=== PATIENT | female | born 1955 | race African-American/Black ===

== ENCOUNTER → 2017-10-12 | Outpatient (CLI) | payer MEDICARE ==
--- NOTE | 2017-10-12 11:12 | Diagnostic Imaging Report ---
PROCEDURE:X-RAY LEFT SHOULDER, COMPLETE COMPARISON:None. INDICATIONS:ARTHRITIS, SHOULDER PAIN FINDINGS: No acute, displaced fracture or dislocation. The humeral head projects appropriately adjacent to the glenoid. Irregularity along the greater humeral tuberosity likely reflects rotator cuff tendinosis. Mild narrowing and osteophytosis of the glenohumeral joint, as well as the acromioclavicular joint. Partially visualized left hemithorax is well aerated. CONCLUSION: Mild acromioclavicular and glenohumeral degenerative joint disease with suspected rotator cuff tendinosis. MRI of the left shoulder without contrast may be of benefit for further evaluation if clinically warranted. Dictated by: Rubin Kamara M.D. on 10/12/2017 at 11:15 Electronically approved by: Rubin Kamara M.D. on 10/12/2017 at 11:15
== END ==
LOC: MAMMO 09:59
PROVIDERS: ATTEND Family Medicine
DX: Z12.31 Encounter for screening mammogram for malignant neoplasm of breast (principal); M25.512 Pain in left shoulder
CPT/HCPCS: 77067

== ENCOUNTER → 2017-10-14 | Outpatient (CLI) | payer MEDICARE ==
--- NOTE | 2017-10-14 12:11 | Diagnostic Imaging Report ---
EXAM: DXA BONE DENSITY INDICATIONS: Osteoporosis COMPARISON: None. FINDINGS: Proximal left femur total bone mineral density (BMD) (g/cm2):0.893 Femur T-score (standard deviation relative to young adult mean BMD): -0.9 Femur Z-score (standard deviation relative to age-matched control group):0.0 Proximal left femur neck bone mineral density (BMD) (g/cm2):0.768 Femur T-score (standard deviation relative to young adult mean BMD): -1.3 Femur Z-score (standard deviation relative to age-matched control group):-0.1 Lumbar bone mineral density (BMD) (g/cm2):1.006 Lumbar T-score (standard deviation relative to young adult mean BMD): -1.3 Lumbar Z-score (standard deviation relative to age-matched control group):0.4 Change since prior exam (%): Femur:Not applicable. Spine:Not applicable. Change since oldest prior exam (%): Femur:Not applicable. Spine:Not applicable. CONCLUSION: 1. Bone mineral density in the left femur is classified as osteopenia. Fracture risk is increased. 2. Bone mineral density in the spine is classified as osteopenia. Fracture risk is increased. World Health Organization Classification: *The Z-score is provided for informational purposes. The T-score is preferable for clinical decisions. When comparing exams, a change of >4% is considered statistically significant. SUGGESTED RECOMMENDATIONS: Normal \T\ Osteopenia:Consideration should be given to use of calcium supplementation, daily multiple vitamins and adequate exercise, as preventive measures against osteoporosis, if clinically indicated. Osteoporosis \T\ Severe Osteoporosis:In addition to the above, consideration should be given to medical therapy against osteoporosis, if clinically indicated. Kb Franco M.D. Dictated by: Kb Franco M.D. on 10/14/2017 at 12:15 Electronically approved by: Kb Franco M.D. on 10/14/2017 at 12:15
== END ==
LOC: DX 10:47
PROVIDERS: ATTEND Family Medicine
DX: M81.0 Age-related osteoporosis without current pathological fracture (principal)
CPT/HCPCS: 77080

== ENCOUNTER → 2018-11-24 | Day surgery (SDC) | payer MEDICARE ==
[~2018-11-24] MED LIST: AMLODIPINE BESY10 MG PO; ASPIR 8181 MG PO; CARBAMAZEPINE200 MG PO; CARVEDILOL3.125 MG PO; CYCLOBENZAPRINE10 MG PO; FENTANYL CITRATE/PF 100MCG/2 ML INJ ONE; GABAPENTIN300 MG PO; LISINOPRIL2.5 MG PO; MIDAZOLAM HCL 2 MG/2 ML VIAL ONE; MULTIVITAMINS1 EAC7 PO; POTASSIUM CHLO10 ME1 PO; PROPOFOL IV EMULSION 10 MG/ML 50 ML VIAL ONE; SIMVASTATIN20 MG PO; TYLENOL WITH C1 EACH PO
--- OUTSIDE RECORDS SUMMARY | 2018-11-24 09:26 | XMS REPORT | Continuity of Care Document ---
Author Author Dovetail Address Unknown Phone Unavailable Care Team Providers Care Clinical Data Management Director Name Role Phone [employer] Unavailable Unavailable Problems Problem Status Onset Date Classification Date Reported Comments Source Acute ischemia of large intestine, extent unspecified 05/14/2018 11/16/2018 [facility] BLEEDING BY RECTUM Active 04/25/2018 [facility] ACUTE COLITIS Active 04/25/2018 [facility] DIZZY/FEVER/OTHER Active 08/25/2012 [facility] Brain tumor Resolved Problem 08/27/2012 [facility] Hypertension Resolved Problem 08/27/2012 [facility] RSD - Reflex sympathetic dystrophy Resolved Problem 08/27/2012 [facility] Seizure Resolved Problem 08/27/2012 [facility] Essential hypertension 11/16/2018 [facility] Epilepsy, unspecified, not intractable, without status epilepticus 11/16/2018 [facility] Diverticulosis of large intestine without perforation or abscess without bleeding 11/16/2018 [facility] Hyperlipidemia, unspecified 11/16/2018 [facility] Anemia, unspecified 11/16/2018 [facility] Other hemorrhoids 11/16/2018 [facility] Personal history of benign neoplasm of the brain 11/16/2018 [facility]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/2018 [facility] Brain tumor Resolved Problem 11[facility]16[facility] - Reflex sympathetic dystrophy Resolved Problem 11/16/2018 [facility] NONINFECTIVE GASTROENTERITIS AND COLITIS Active [facility] Medications Medication Details Route Status Patient Instructions Ordering Provider Order Date Source Fosamax 10 mg, 1 tab, Route: PO, Drug form: TAB, [id number], Start date: 05/02/18 6:30:00 [employer], Duration: 30 day, Stop date: 05/31/18 6:30:00 CSTNotes: Non-Formulary Drug Reserved for use in Post-Acute retirement care settings ONLY Give 30 min before breakfast w/6oz water. Sit upright for 30 min after dose. "Do Not Crush" (Same as: Fosamax) No Longer Active 05/02/2018 [facility] Metronidazole 500 MG Oral Tablet 500 mg=1 tab, PO, ABXQ8H, # 30 tab, 0 Refill(s), Pharmacy: [facility] [id number] No Longer Active 04/29/2018 [facility] Metronidazole 500 MG Oral Tablet 500 mg=1 tab, PO, ABXQ8H, # 20 tab, 0 Refill(s), Pharmacy: [facility] [id number] No Longer Active 04/29/2018 [facility] Flagyl 500 mg, 1 tab, Route: PO, Drug form: TAB, ABXQ8H, Dosing Weight 60, kg, Start date: 04/29/18 13:00:00 [employer], Duration: 7 day, Stop date: 05/06/18 5:00:00 [employer], ABX Indication: Intra-abdominal InfectionNotes: (Same as: Flagyl) Take with food/ avoid alcohol Inactive 04/29/2018 [facility] Cipro 500 mg, 1 tab, Route: PO, Drug form: TAB, [id number], Dosing Weight 60, kg, Start date: 04/29/18 13:00:00 [employer], Duration: 7 day, Stop date: 05/06/18 1:00:00 [employer], ABX Indication: Intra-abdominal InfectionNotes: May interfere w/enteral feedings - Take 1 hr before or 2 hrs after antacids, dairy pdt & minerals. On empty stomach. Inactive 04/29/2018 [facility] Potassium Chloride 10 mEq, 100 mL, Route: IVPB, Drug form: INJ, Q1H, Dosing Weight 60, kg, Total Dose=40 meq, Start date: 04/27/18 6:00:00 [employer], Duration: 4 doses or times, Stop date: 04/27/18 9:00:00 [employer], Peripheral LineNotes: Infuse at a rate of 10 mEq/hr. (Same as: KCL) Inactive 04/27/2018 [facility] Simvastatin 20 mg, 1 tab, Route: PO, Drug form: TAB, Bedtime, Dosing Weight 60, kg, Start date: 04/26/18 21:00:00 [employer], Duration: 30 day, Stop date: 05/25/18 21:00:00 CSTNotes: (Same as: Zocor) No Longer Active 04/27/2018 [facility] Zofran 4 mg, 2 mL, Route: IVP, Drug form: INJ, Q8H, Dosing Weight 60, kg, PRN Nausea, Start date: 04/26/18 12:55:00 [employer], Duration: 30 day, Stop date: 05/26/18 12:54:00 CSTNotes: (Same as: Zofran) MEDICATION WASTE Product Size: 4 mg Product Wasted: ___ mg No Longer Active 04/26/2018 [facility] Golytely 4,000 ml, Route: PO, Drug Form: PDR/REC, Dosing Weight 60, kg, ONCE, Start date: 04/26/18 12:55:00 [employer], Stop date: 04/26/18 12:55:00 CSTNotes: (polyethylene glycol electrolyte solution 4 Liter bottle) (Same as: Golytely, Colyte) Inactive 04/26/2018 [facility] Dulcolax Laxative 20 mg, 4 tab, Route: PO, Drug form: ECTAB, ONCE, Dosing Weight 60, kg, Start date: 04/26/18 12:55:00 [employer], Stop date: 04/26/18 12:55:00 CSTNotes: (Same As: Dulcolax, Correctol) (Do Not Crush) "Do Not Crush" Inactive 04/26/2018 [facility] Citrate of Magnesia 300 ml, Route: PO, Drug Form: LIQ, Dosing Weight 60, kg, ONCE, Start date: 04/26/18 12:55:00 [employer], Stop date: 04/26/18 12:55:00 CSTNotes: (Same as: Citrate of Magnesia) Concentration: 1.745 gm / 30 mL Inactive 04/26/2018 [facility] calcium-vitamin D 315 mg-200 intl units oral tablet 1 tab, Route: PO, Drug Form: TAB, BID, Start date: 04/26/18 9:00:00 [employer], Duration: 30 day, Stop date: 05/25/18 17:00:00 CSTNotes: Non-Formulary Medication (Same As: Citracal Caplets Plus D) No Longer Active 04/26/2018 [facility] Prevacid 15 mg, Route: PO, Daily, Dosing Weight 60, kg, Start date: 04/26/18 9:00:00 [employer], Duration: 30 day, Stop date: 05/25/18 9:00:00 [employer] Inactive 04/26/2018 [facility] Hydrochlorothiazide 25 MG Oral Tablet 25 mg, 1 tab, Route: PO, Drug form: TAB, QAM, Dosing Weight 60, kg, Start date: 04/26/18 9:00:00 [employer], Duration: 30 day, Stop date: 05/25/18 9:00:00 CSTNotes: (Same as: Hydrodiuril) With food. No Longer Active 04/26/2018 [facility] gabapentin 300 MG Oral Capsule 300 mg, 1 cap, Route: PO, Drug form: CAP, BID, Dosing Weight 60, kg, Start date: 04/26/18 9:00:00 [employer], Duration: 30 day, Stop date: 05/25/18 21:00:00 CSTNotes: (Same as: Neurontin) No Longer Active 04/26/2018 [facility] Folic Acid 1 mg, 1 tab, Route: PO, Drug form: TAB, Daily, Dosing Weight 60, kg, Start date: 04/26/18 9:00:00 [employer], Duration: 30 day, Stop date: 05/25/18 9:00:00 CSTNotes: (Same as: Folvite) No Longer Active 04/26/2018 [facility] Doxazosin 1 mg, 0.5 tab, Route: PO, Drug form: TAB, Daily, Dosing Weight 60, kg, Start date: 04/26/18 9:00:00 [employer], Duration: 30 day, Stop date: 05/25/18 9:00:00 CSTNotes: (Same as: Cardura) No Longer Active 04/26/2018 [facility] Estrogens, Conjugated (FDC) 0.625 MG/ML Vaginal Cream [Premarin] 1 appl, Route: VAG, Daily, Drug form: CRM/A, Start date: 04/26/18 9:00:00 [employer], Duration: 30 day, Stop date: 05/25/18 9:00:00 [employer] Inactive 04/26/2018 [facility] Tegretol 200 mg, 1 tab, Route: PO, Drug form: TAB, BID, Dosing Weight 60, kg, Start date: 04/26/18 9:00:00 [employer], Duration: 30 day, Stop date: 05/25/18 17:00:00 CSTNotes: With food. (Same As: Tegretol) No Longer Active 04/26/2018 [facility] Aspirin 81 mg, 1 tab, Route: PO, Drug form: ECTAB, Daily, Dosing Weight 60, kg, Start date: 04/26/18 9:00:00 [employer], Duration: 30 day, Stop date: 05/25/18 9:00:00 CSTNotes: Do not crush or chew. (Same As: Ecotrin) No Longer Active 04/26/2018 [facility] carvedilol 6.25 mg, 1 tab, Route: PO, Drug form: TAB, BID, Dosing Weight 60, kg, Start date: 04/26/18 9:00:00 [employer], Duration: 30 day, Stop date: 05/25/18 21:00:00 CSTNotes: Give with food. (Same As: Coreg) No Longer Active 04/26/2018 [facility] Calcium Carbonate Route: PO, BID, Dosing Weight 60, kg, Start date: 04/26/18 9:00:00 [employer], Duration: 30 day, Stop date: 05/25/18 17:00:00 [employer] Inactive 04/26/2018 [facility] Amlodipine 10 mg, 1 tab, Route: PO, Drug form: TAB, Daily, Dosing Weight 60, kg, Start date: 04/26/18 9:00:00 [employer], Duration: 30 day, Stop date: 05/25/18 9:00:00 CSTNotes: (Same as: Norvasc) No Longer Active 04/26/2018 [facility] Klor-Con 10 mEq, 1 tab, Route: PO, Drug form: ERTAB, Daily, Dosing Weight 60, kg, Start date: 04/26/18 9:00:00 [employer], Duration: 30 day, Stop date: 05/25/18 9:00:00 CSTNotes: (Same as: K-Dur 10) "Do Not Crush" With food and full glass of water No Longer Active 04/26/2018 [facility] multivitamin 1 tab, Route: PO, Drug Form: TAB, Dosing Weight 60, kg, Daily, Start date: 04/26/18 9:00:00 [employer], Duration: 30 day, Stop date: 05/25/18 9:00:00 CSTNotes: (Same as:One Tab Daily, Tab-A-Soraida + Beta Carotene) Give with food. No Longer Active 04/26/2018 [facility] Methocarbamol 1,500 mg, 3 tab, Route: PO, Drug form: TAB, TID, Dosing Weight 60, kg, Start date: 04/26/18 9:00:00 [employer], Duration: 30 day, Stop date: 05/25/18 17:00:00 CSTNotes: (Same as:Robaxin) No Longer Active 04/26/2018 [facility] Alendronate 70 mg, Route: PO, Drug form: EFTAB, qWeek, Dosing Weight 60, kg, Start date: 04/26/18 8:00:00 [employer], Duration: 30 day, Stop date: 05/24/18 9:00:00 [employer] Inactive 04/26/2018 [facility] Protonix 40 mg, 1 tab, Route: PO, Drug form: ECTAB, Q24H, Start date: 04/26/18 8:00:00 [employer], Duration: 30 day, Stop date: 05/25/18 8:00:00 CSTNotes: Tablet should not be chewed or crushed. (Same as: Protonix) No Longer Active 04/26/2018 [facility] Lactulose 667 MG/ML Oral Solution 20 gm, 30 ml, Route: PO, Drug form: SYRP, Daily, Dosing Weight 60, kg, PRN Constipation, Start date: 04/26/18 7:26:00 [employer], Duration: 30 day, Stop date: 05/26/18 7:25:00 CSTNotes: (Same as:Chronulac) No Longer Active 04/26/2018 [facility] Ibuprofen 400 MG Oral Tablet 400 mg, 1 tab, Route: PO, Drug form: TAB, Q8H, Dosing Weight 60, kg, PRN Pain Score 1-3, Start date: 04/26/18 7:26:00 [employer], Duration: 30 day, Stop date: 05/26/18 7:25:00 CSTNotes: (Same as: Motrin) "Do Not Crush" Give with food. No Longer Active 04/26/2018 [facility] hydrocortisone acetate 25 MG Rectal Suppository [Anusol HC] 25 mg, 1 supp, Route: DE, BID, Drug form: SUPP, PRN Hemorrhoids, Start date: 04/26/18 7:26:00 [employer], Duration: 30 day, Stop date: 05/26/18 7:25:00 CSTNotes: (Same as: Anusol-HC, Hemorrhoidal HC) No Longer Active 04/26/2018 [facility] Cetirizine 10 mg, 1 tab, Route: PO, Drug form: TAB, QPM, Dosing Weight 60, kg, PRN as needed for allergy symptoms, Start date: 04/26/18 7:26:00 [employer], Duration: 30 day, Stop date: 05/26/18 7:25:00 CSTNotes: (Same As: Zyrtec) No Longer Active 04/26/2018 [facility] Acetaminophen 325 MG / Hydrocodone Bitartrate 5 MG Oral Tablet [[employer] 5/325] 1 tab, Route: PO, Drug Form: TAB, Dosing Weight 60, kg, Q8H, PRN Other -See Comment, Start date: 04/26/18 7:26:00 [employer], Duration: 30 day, Stop date: 05/26/18 7:25:00 CSTNotes: (Same as: [employer] 325/5) Do not exceed 4gm/day of acetaminophen. No Longer Active 04/26/2018 [facility] zolpidem 5 mg, 1 tab, Route: PO, Drug form: TAB, Bedtime, Dosing Weight 60, kg, PRN Sleep, Start date: 04/26/18 7:26:00 [employer], Duration: 30 day, Stop date: 05/26/18 7:25:00 CSTNotes: (Same As: Ambien) No Longer Active 04/26/2018 [facility] Flagyl 500 mg, 100 mL, Route: IVPB, Drug form: INJ, ABXQ8H, Dosing Weight 64.744, kg, Start date: 04/26/18 2:00:00 [employer], Duration: 14 day, Stop date: 05/09/18 18:00:00 [employer], ABX Indication: Intra-abdominal Infec tionNotes: (Same as: Flagyl) Avoid alcohol. No Longer Active 04/26/2018 [facility] Potassium Chloride 10 mEq, 100 mL, Route: IVPB, Drug form: INJ, Q1H, Dosing Weight 60, kg, Total Dose=20 meq, Start date: 04/26/18 0:00:00 [employer], Duration: 2 doses or times, Stop date: 04/26/18 1:00:00 [employer], Peripheral LineNotes: Infuse at a rate of 10 mEq/hr. (Same as: KCL) Inactive 04/26/2018 [facility] carvedilol 6.25 mg oral tablet 6.25 mg=1 tab, PO, BID, # 180 tab, 0 Refill(s) Active 04/26/2018 [facility] Rocephin + sterile water 10 mL 1 gm, Route: IV, [id number], Dosing Weight 64.744, kg, Start date: 04/25/18 20:00:00 [employer], Duration: 14 day, Stop date: 05/08/18 20:00:00 [employer], ABX Indication: Intra-abdominal InfectionNotes: (Same As: Rocephin). Use with 100 mL NS and infuse over 30 min MEDICATION WASTE Product Size: 1000 mg Product Wasted: ___ mg No Longer Active 04/26/2018 [facility] Dilaudid 1 mg, 0.5 mL, Route: IVP, Drug form: INJ, Q4H, Dosing Weight 64.744, kg, PRN Pain Score 7-10, Start date: 04/25/18 19:26:00 [employer], Duration: 30 day, Stop date: 05/25/18 19:25:00 CSTNotes: Same as Dilaudid No Longer Active 04/26/2018 [facility] pantoprazole 40 mg, Route: IVP, ONCE, Dosing Weight 64.744, kg, Patient is NPO, Priority: STAT, Start date: 04/25/18 19:12:00 [employer], Stop date: 04/25/18 19:12:00 [employer] Inactive 04/26/2018 [facility] Cipro 400 mg, 200 mL, Route: IVPB, Drug form: INJ, ONCE, Dosing Weight 64.744, kg, Priority: STAT, Start date: 04/25/18 18:18:00 [employer], Stop date: 04/25/18 18:18:00 [employer], ABX Indication: Intra-abdominal Infec tionNotes: Do not refrigerate Inactive 04/26/2018 [facility] Flagyl 500 mg, 100 mL, Route: IVPB, Drug form: INJ, ONCE, Dosing Weight 64.744, kg, Priority: STAT, Start date: 04/25/18 18:18:00 [employer], Stop date: 04/25/18 18:18:00 [employer], ABX Indication: Intra-abdominal Infec tionNotes: (Same as: Flagyl) Avoid alcohol. Inactive 04/26/2018 [facility] Omnipaque 300 100 btl, Route: IV, Dosing Weight 64.744, kg, ONCE, Start date: 04/25/18 17:41:00 [employer], Stop date: 04/25/18 17:41:00 [employer] Inactive 04/25/2018 [facility] magnesium oxide 400 mg, 1 tab, Route: PO, Drug form: TAB, ONCE, Dosing Weight 59.091, kg, Start date: 08/25/12 19:56:00, Stop date: 08/25/12 19:56:00 PO No Longer Active 08/26/2012 [facility] potassium chloride 20 mEq oral tablet, extended release 40 mEq, 2 tab, Route: PO, Drug form: ERTAB, ONCE, Dosing Weight 59.091, kg, Priority: STAT, Start date: 08/25/12 19:53:00, Stop date: 08/25/12 19:53:00 PO No Longer Active [place] 08/26/2012 [facility] Macrobid 100 mg oral capsule 100 mg, 1 cap, PO, BID, 20 cap, Substitution Allowed, CAP PO Active [place] 08/25/2012 [facility] folic acid 1 mg oral tablet 1 mg, 1 tab, PO, Daily, 30 tab, Substitution Allowed, TAB PO Active 08/25/2012 [facility] multivitamin 1 tab, PO, Daily, Substitution Allowed, Maintenance PO Active 08/25/2012 [facility] aspirin 81 mg, PO, Daily, Substitution Allowed PO Active 08/25/2012 [facility] calcium carbonate vitamin D3 600-400 MG 1 tab, PO, BID, Substitution Allowed PO Active 08/25/2012 [facility] Premarin Vaginal 0.625 mg/g cream with applicator 1 appl, VAG, Daily, 42 gm, Substitution Allowed VAG Active 08/25/2012 [facility] lactulose 15 mL, PO, Daily, PRN, as needed for constipation, Substitution Allowed, Maintenance PO Active 08/25/2012 [facility] methocarbamol 750 mg oral tablet 1,500 mg, 2 tab, PO, TID, 60 tab, Substitution Allowed, TAB PO Active 08/25/2012 [facility] zolpidem 5 mg oral tablet 5 mg, 1 tab, PO, Bedtime, PRN, as needed for sleep, Substitution Allowed PO Active 08/25/2012 [facility] alendronate 70 mg oral tablet, effervescent 70 mg, 1 tab, PO, qWeek, on empty stomach and avoid bending, Substitution Allowedon empty stomach and avoid bending PO Active 08/25/2012 [facility] gabapentin 300 mg oral capsule 300 mg, 1 cap, PO, BID, 90 cap, Substitution Allowed PO Active 08/25/2012 [facility] doxazosin 1 mg oral tablet 1 mg, 1 tab, PO, Daily, 30 tab, Substitution Allowed, TAB PO Active 08/25/2012 [facility] simvastatin 20 mg, 1 tab, PO, Bedtime, 30 tab, Substitution Allowed PO Active 08/25/2012 [facility] Tegretol 200 mg oral tablet 200 mg, 1 tab, PO, Daily, 120 tab, Substitution Allowed, TAB PO Active 08/25/2012 [facility] Klor-Con 20 mEq, PO, Daily, Substitution Allowed PO Active 08/25/2012 [facility] amLODipine 10 mg oral tablet 10 mg, 1 tab, PO, Daily, 90 tab, Substitution Allowed, TAB PO Active 08/25/2012 [facility] hydrochlorothiazide 25 mg oral tablet 25 mg, 1 tab, PO, QAM, 30 tab, Substitution Allowed PO Active 08/25/2012 [facility] Prevacid 15 mg, PO, Daily, Substitution Allowed PO Active 08/25/2012 [facility] ibuprofen 400 mg oral tablet 400 mg, 1 tab, PO, Q8H, PRN, 60 tab, Pain, Substitution Allowed PO Active 08/25/2012 [facility] Anusol-HC 25 mg rectal suppository 25 mg, 1 supp, DE, BID, PRN, 14 supp, hemorrhoids, Substitution Allowed, SUPP DE Active 08/25/2012 [facility] cetirizine 10 mg oral capsule 10 mg, 1 cap, PO, QPM, PRN, as needed for allergy symptoms, Substitution Allowed PO Active 08/25/2012 [facility] [employer] 5/325 oral tablet 1 tab, PO, Q8H, PRN, 30 tab, as needed for pain, Substitution Allowed, Maintenance PO Active 08/25/2012 [facility] Allergies, Adverse Reactions, Alerts Substance Category Reaction Severity Reaction type Status Date Reported Comments Source No Known Medication Allergies Assertion Drug allergy [facility] Immunizations No Data Provided for This Section Results Order Name Results Value Reference Range Date Interpretation Comments Source HEMATOLOGY Lymphocytes # 1.4 1.0 - 5.5 04/29/2018 [facility] HEMATOLOGY Neutrophils # 1.8 1.5 - 8.1 04/29/2018 [facility] HEMATOLOGY Basophils 1.0 0.0 - 1.0 04/29/2018 [facility] HEMATOLOGY Monocytes # 0.6 0.0 - 0.8 04/29/2018 [facility] HEMATOLOGY Monocytes 15.3 2.0 - 12.0 04/29/2018 [facility] HEMATOLOGY Lymphocytes 36.5 20.0 - 40.0 04/29/2018 [facility] HEMATOLOGY Segs 47.2 45.0 - 75.0 04/29/2018 [facility] HEMATOLOGY MCHC 33.9 32.0 - 36.0 04/29/2018 [facility] HEMATOLOGY RDW 12.7 11.5 - 14.5 04/29/2018 [facility] HEMATOLOGY Hgb 11.9 12.0 - 16.0 04/29/2018 [facility] HEMATOLOGY RBC 3.73 4.20 - 5.40 04/29/2018 [facility] HEMATOLOGY WBC 3.8 3.7 - 10.4 04/29/2018 [facility] HEMATOLOGY Platelet 354 133 - 450 04/29/2018 [facility] HEMATOLOGY MPV 6.4 7.4 - 10.4 04/29/2018 [facility] HEMATOLOGY MCV 94.6 80.0 - 98.0 04/29/2018 [facility] HEMATOLOGY MCH 32.0 27.0 - 31.0 04/29/2018 [facility] HEMATOLOGY Hct 35.3 36.0 - 48.0 04/29/2018 [facility] HEMATOLOGY Neutrophils # 1.3 1.5 - 8.1 04/29/2018 [facility] HEMATOLOGY Basophils 0.8 0.0 - 1.0 04/29/2018 [facility] HEMATOLOGY Lymphocytes # 1.7 1.0 - 5.5 04/29/2018 [facility] HEMATOLOGY Monocytes # 0.4 0.0 - 0.8 04/29/2018 [facility] HEMATOLOGY Lymphocytes 49.1 20.0 - 40.0 04/29/2018 [facility] HEMATOLOGY Segs 38.1 45.0 - 75.0 04/29/2018 [facility] HEMATOLOGY Monocytes 12.0 2.0 - 12.0 04/29/2018 [facility] HEMATOLOGY MCHC 34.3 32.0 - 36.0 04/29/2018 [facility] HEMATOLOGY RDW 13.1 11.5 - 14.5 04/29/2018 [facility] HEMATOLOGY MPV 6.6 7.4 - 10.4 04/29/2018 [facility] HEMATOLOGY Platelet 336 133 - 450 04/29/2018 [facility] HEMATOLOGY Hgb 11.1 12.0 - 16.0 04/29/2018 [facility] HEMATOLOGY MCV 94.0 80.0 - 98.0 04/29/2018 [facility] HEMATOLOGY Hct 32.5 36.0 - 48.0 04/29/2018 [facility] HEMATOLOGY MCH 32.2 27.0 - 31.0 04/29/2018 [facility] HEMATOLOGY WBC 3.4 3.7 - 10.4 04/29/2018 [facility] HEMATOLOGY RBC 3.46 4.20 - 5.40 04/29/2018 [facility] HEMATOLOGY MPV 6.5 7.4 - 10.4 04/29/2018 [facility] HEMATOLOGY Platelet 319 133 - 450 04/29/2018 [facility] HEMATOLOGY Hgb 11.1 12.0 - 16.0 04/29/2018 [facility] HEMATOLOGY RBC 3.41 4.20 - 5.40 04/29/2018 [facility] HEMATOLOGY WBC 4.0 3.7 - 10.4 04/29/2018 [facility] HEMATOLOGY Hct 32.5 36.0 - 48.0 04/29/2018 [facility] HEMATOLOGY MCH 32.5 27.0 - 31.0 04/29/2018 [facility] HEMATOLOGY MCV 95.3 80.0 - 98.0 04/29/2018 [facility] HEMATOLOGY RDW 12.7 11.5 - 14.5 04/29/2018 [facility] HEMATOLOGY MCHC 34.1 32.0 - 36.0 04/29/2018 [facility] HEMATOLOGY Lymphocytes 48.8 20.0 - 40.0 04/29/2018 [facility] HEMATOLOGY Segs 40.5 45.0 - 75.0 04/29/2018 [facility] HEMATOLOGY Basophils 0.7 0.0 - 1.0 04/29/2018 [facility] HEMATOLOGY Monocytes 10.0 2.0 - 12.0 04/29/2018 [facility] HEMATOLOGY Lymphocytes # 2.0 1.0 - 5.5 04/29/2018 [facility] HEMATOLOGY Neutrophils # 1.6 1.5 - 8.1 04/29/2018 [facility] HEMATOLOGY Monocytes # 0.4 0.0 - 0.8 04/29/2018 [facility] CHEM PANEL eGFR 79 04/28/2018 Result Comment: The eGFR is calculated using the CKD-EPI formula. In most young, healthy individuals the eGFR will be >90 mL/min/1.73m2. The eGFR declines with age. An eGFR of 60-89 may be normal in some populations, particularly the elderly, for whom the CKD-EPI formula has not been extensively validated. Use of the eGFR is not recommended in the following populations:

Individuals with unstable creatinine concentrations, including patients and those with serious co-morbid conditions.

Patients with extremes in muscle mass or diet.

The data above are obtained from the National Kidney Disease Education Program (NKDEP) which additionally recommends that when the eGFR is used in patients with extremes of body mass index for purposes of drug dosing, the eGFR should be multiplied by the estimated BMI. [facility] CHEM PANEL AGAP 9.6 10.0 - 20.0 04/28/2018 [facility] CHEM PANEL Calcium Lvl 8.9 8.5 - 10.5 04/28/2018 [facility] CHEM PANEL B/C Ratio 16 6 - 25 04/28/2018 [facility] CHEM PANEL Bili Total 0.2 0.2 - 1.3 04/28/2018 [facility] CHEM PANEL Globulin 3.1 2.7 - 4.2 04/28/2018 [facility] CHEM PANEL Total Protein 6.6 6.4 - 8.4 04/28/2018 [facility] CHEM PANEL A/G Ratio 1.1 0.7 - 1.6 04/28/2018 [facility] CHEM PANEL ALT 22 0 - 65 04/28/2018 [facility] CHEM PANEL AST 13 0 - 37 04/28/2018 [facility] CHEM PANEL Alk Phos 116 39 - 136 04/28/2018 [facility] CHEM PANEL Albumin Lvl 3.5 3.5 - 5.0 04/28/2018 [facility] CHEM PANEL Potassium Lvl 3.6 3.5 - 5.1 04/28/2018 [facility] CHEM PANEL Chloride Lvl 102 95 - 109 04/28/2018 [facility] CHEM PANEL CO2 31 24 - 32 04/28/2018 [facility] [facility] BUN 14 7 - 22 04/28/2018 [facility] CHEM PANEL Glucose Lvl 86 70 - 99 04/28/2018 [facility] CHEM PANEL Sodium Lvl 139 135 - 145 04/28/2018 [facility] CHEM PANEL Creatinine Lvl 0.90 0.50 - 1.40 04/28/2018 [facility] CHEM PANEL A/G Ratio 1.1 0.7 - 1.6 04/27/2018 [facility] CHEM PANEL Albumin Lvl 3.9 3.5 - 5.0 04/27/2018 [facility] CHEM PANEL Globulin 3.7 2.7 - 4.2 04/27/2018 [facility] CHEM PANEL Chloride Lvl 94 95 - 109 04/27/2018 [facility] CHEM PANEL CO2 32 24 - 32 04/27/2018 [facility] CHEM PANEL AGAP 11.9 10.0 - 20.0 04/27/2018 [facility] CHEM PANEL AST 12 0 - 37 04/27/2018 [facility] CHEM PANEL ALT 23 0 - 65 04/27/2018 [facility] CHEM PANEL Bili Total 0.3 0.2 - 1.3 04/27/2018 [facility] CHEM PANEL eGFR 109 04/27/2018 Result Comment: The eGFR is calculated using the CKD-EPI formula. In most young, healthy individuals the eGFR will be >90 mL/min/1.73m2. The eGFR declines with age. An eGFR of 60-89 may be normal in some populations, particularly the elderly, for whom the CKD-EPI formula has not been extensively validated. Use of the eGFR is not recommended in the following populations:

Individuals with unstable creatinine concentrations, including patients and those with serious co-morbid conditions.

Patients with extremes in muscle mass or diet.

The data above are obtained from the National Kidney Disease Education Program (NKDEP) which additionally recommends that when the eGFR is used in patients with extremes of body mass index for purposes of drug dosing, the eGFR should be multiplied by the estimated BMI. [facility] CHEM PANEL Calcium Lvl 9.0 8.5 - 10.5 04/27/2018 [facility] CHEM PANEL B/C Ratio 7 6 - 25 04/27/2018 [facility] CHEM PANEL Total Protein 7.6 6.4 - 8.4 04/27/2018 [facility] CHEM PANEL Alk Phos 139 39 - 136 04/27/2018 [facility] CHEM PANEL Sodium Lvl 135 135 - 145 04/27/2018 [facility] CHEM PANEL Creatinine Lvl 0.67 0.50 - 1.40 04/27/2018 [facility] CHEM PANEL BUN 5 7 - 22 04/27/2018 [facility] CHEM PANEL Glucose Lvl 102 70 - 99 04/27/2018 [facility] CHEM PANEL Potassium Lvl 2.9 3.5 - 5.1 04/27/2018 Result Comment: Critical Result(s) called to marlen at 04/27/2018 05:25 by . Read back OK. [facility] HEMATOLOGY PTT 33.7 22.9 - 35.8 04/27/2018 [facility] HEMATOLOGY INR 1.09 0.85 - 1.17 04/27/2018 [facility] HEMATOLOGY PT 13.9 12.0 - 14.7 04/27/2018 [facility] Culture: Stool No Gram Negative Enteric Gill Isolated Gram Positive Gill Only Isolated No Salmonella, Shigella, Or Campylobacter Isolated 04/26/2018 [facility] CHEM PANEL Procalcitonin Lvl <0.05 ng/mL 0.00 - 0.10 04/26/2018 [facility] HEMATOLOGY PTT 29.4 22.9 - 35.8 04/26/2018 [facility] HEMATOLOGY INR 1.04 0.85 - 1.17 04/26/2018 [facility] HEMATOLOGY PT 13.4 12.0 - 14.7 04/26/2018 [facility] HEMATOLOGY Sed Rate 20 0 - 20 04/26/2018 [facility] IMMUNOLOGY Prealbumin 23.4 18.0 - 45.0 04/26/2018 [facility] TUMOR MARKERS CA 19-9 10.6 0.0 - 35.0 04/26/2018 [facility] TUMOR MARKERS AFP 3.4 0.0 - 11.0 04/26/2018 [facility] TUMOR MARKERS CEA 3.0 0.0 - 3.0 04/26/2018 [facility] CHEM PANEL A/G Ratio 1.2 0.7 - 1.6 04/25/2018 [facility] CHEM PANEL Globulin 3.8 2.7 - 4.2 04/25/2018 [facility] CHEM PANEL B/C Ratio 7 6 - 25 04/25/2018 [facility] CHEM PANEL AGAP 13.4 10.0 - 20.0 04/25/2018 [facility] CHEM PANEL eGFR 78 04/25/2018 Result Comment: The eGFR is calculated using the CKD-EPI formula. In most young, healthy individuals the eGFR will be >90 mL/min/1.73m2. The eGFR declines with age. An eGFR of 60-89 may be normal in some populations, particularly the elderly, for whom the CKD-EPI formula has not been extensively validated. Use of the eGFR is not recommended in the following populations:

Individuals with unstable creatinine concentrations, including patients and those with serious co-morbid conditions.

Patients with extremes in muscle mass or diet.

The data above are obtained from the National Kidney Disease Education Program (NKDEP) which additionally recommends that when the eGFR is used in patients with extremes of body mass index for purposes of drug dosing, the eGFR should be multiplied by the estimated BMI. [facility] CHEM PANEL Total Protein 8.2 6.4 - 8.4 04/25/2018 [facility] CHEM PANEL CO2 32 24 - 32 04/25/2018 [facility] CHEM PANEL Calcium Lvl 9.6 8.5 - 10.5 04/25/2018 [facility] CHEM PANEL AST 17 0 - 37 04/25/2018 [facility] CHEM PANEL Alk Phos 151 39 - 136 04/25/2018 [facility] CHEM PANEL Albumin Lvl 4.4 3.5 - 5.0 04/25/2018 [facility] CHEM PANEL ALT 26 0 - 65 04/25/2018 [facility] CHEM PANEL Potassium Lvl 3.4 3.5 - 5.1 04/25/2018 [facility] CHEM PANEL Bili Total 0.3 0.2 - 1.3 04/25/2018 [facility] CHEM PANEL BUN 6 7 - 22 04/25/2018 [facility] CHEM PANEL Creatinine Lvl 0.91 0.50 - 1.40 04/25/2018 [facility] CHEM PANEL Sodium Lvl 130 135 - 145 04/25/2018 [facility] CHEM PANEL Chloride Lvl 88 95 - 109 04/25/2018 [facility] CHEM PANEL Glucose Lvl 96 70 - 99 04/25/2018 [facility] HEMATOLOGY INR 0.92 0.85 - 1.17 04/25/2018 [facility] HEMATOLOGY PT 12.2 12.0 - 14.7 04/25/2018 [facility] CHEMISTRY eGFR 95 08/25/2012 NA <sup>2</sup>Result Comment: The eGFR is calculated using the CKD-EPI formula. In most young, healthy individuals the eGFR will be >90 mL/min/1.73m2. The eGFR declines with age. An eGFR of 60-89 may be normal in some populations, particularly the elderly, for whom the CKD-EPI formula has not been extensively validated. Use of the eGFR is not recommended in the following populations:& lt;br/>
Individuals with unstable creatinine concentrations, including patients and those with serious co-morbid conditions.

Patients with extremes in muscle mass or diet.

The data above are obtained from the National Kidney Disease Education Program (NKDEP) which additionally recommends that when the eGFR is used in patients with extremes of body mass index for purposes of drug dosing, the eGFR should be multiplied by the estimated BMI. [facility] CHEMISTRY CO2 34 24 - 32 08/25/2012 HI [facility] CHEMISTRY AGAP 13.0 10.0 - 20.0 08/25/2012 Normal [facility] CHEMISTRY Calcium Lvl 9.1 8.5 - 10.5 08/25/2012 Normal [facility] CHEMISTRY Potassium Lvl 3.0 3.5 - 5.1 08/25/2012 CRIT <sup>1</sup>Result Comment: Critical Result(s) called to Bita Whitehead at08/25/2012 18:42:15 CDT _ by johnathan henry_. Read back OK. [facility] CHEMISTRY Glucose Lvl 99 70 - 99 08/25/2012 Normal <sup>3</sup>Interpretive Data: Adult reference range values reflect the clinical guidelines
of the [place] [employer]. [facility] CHEMISTRY Chloride Lvl 100 95 - 109 08/25/2012 Normal [facility] CHEMISTRY Sodium Lvl 144 135 - 145 08/25/2012 Normal [facility] CHEMISTRY Creatinine Lvl 0.8 0.5 - 1.4 08/25/2012 Normal [facility] CHEMISTRY BUN 14 7 - 22 08/25/2012 Normal [facility] HEMATOLOGY PT 12.1 12.0 - 14.7 08/25/2012 Normal [facility] HEMATOLOGY INR 0.87 0.85 - 1.17 08/25/2012 Normal <sup>4</sup>Interpretive Data: RECOMMENDED RANGES FOR PROTIME INR:
2.0-3.0 for most medical and surgical thromboembolic states.
2.5-3.5 for artificial heart valves and recurrent embolism.

INR SHOULD BE USED ONLY FOR PATIENTS ON STABLE ANTICOAGULANT THERAPY. [facility] HEMATOLOGY MPV 7.2 7.4 - 10.4 08/25/2012 LOW [facility] HEMATOLOGY Platelet 284 133 - 450 08/25/2012 Normal [facility] HEMATOLOGY RDW 12.3 11.5 - 14.5 08/25/2012 Normal [facility] HEMATOLOGY MCHC 33.5 32.0 - 36.0 08/25/2012 Normal [facility] HEMATOLOGY MCH 31.6 27.0 - 31.0 08/25/2012 HI [facility] HEMATOLOGY Hgb 11.0 12.0 - 16.0 08/25/2012 [facility] HEMATOLOGY Hct 32.9 36.0 - 48.0 08/25/2012 LOW [facility] HEMATOLOGY RBC 3.49 4.20 - 5.40 08/25/2012 [facility] HEMATOLOGY WBC 5.4 3.7 - 10.4 08/25/2012 Normal [facility] HEMATOLOGY MCV 94.3 81.0 - 99.0 08/25/2012 Normal [facility] HEMATOLOGY Monocytes 11.8 2.0 - 12.0 08/25/2012 Normal [facility] HEMATOLOGY Eosinophils 0.0 0.0 - 4.0 08/25/2012 Normal [facility] HEMATOLOGY Segs-Bands # 2.9 1.5 - 8.1 08/25/2012 Normal [facility] HEMATOLOGY Segs 52.7 45.0 - 75.0 08/25/2012 Normal [facility] HEMATOLOGY Basophils 0.6 0.0 - 1.0 08/25/2012 Normal [facility] HEMATOLOGY Lymphocytes 34.9 20.0 - 40.0 08/25/2012 Normal [facility] HEMATOLOGY Eosinophils # 0.0 0.0 - 0.5 08/25/2012 Normal [facility] HEMATOLOGY Basophils # 0.0 0.0 - 0.2 08/25/2012 Normal [facility] HEMATOLOGY Lymphocytes # 1.9 1.0 - 5.5 08/25/2012 Normal [facility] HEMATOLOGY Monocytes # 0.6 0.0 - 0.8 08/25/2012 Normal [facility] URINALYSIS UA Renal Epi 0-2 /LPF *ABN* (08/25/2012 17:50:00) 08/25/2012 ABN [facility] URINALYSIS UA Amorph Ayleen Few /HPF *ABN* (08/25/2012 17:50:00) None Seen 08/25/2012 ABN [facility] URINALYSIS UA Bacteria Occasional /HPF (08/25/2012 17:50:00) None Seen 08/25/2012 Normal [facility] URINALYSIS UA Mucus Few /LPF (08/25/2012 17:50:00) None Seen 08/25/2012 Normal [facility] URINALYSIS UA RBC 21-50 /HPF *ABN* (08/25/2012 17:50:00) 0 - 2 08/25/2012 ABN [facility] URINALYSIS UA Sq Epi Moderate /LPF *ABN* (08/25/2012 17:50:00) Few 08/25/2012 ABN [facility] URINALYSIS UA WBC 3-5 /HPF (08/25/2012 17:50:00) None Seen 08/25/2012 Normal [facility] URINALYSIS Micro? Performed (08/25/2012 17:50:00) 08/25/2012 Normal [facility] URINALYSIS UA Nitrite Negative (08/25/2012 17:50:00) Negative 08/25/2012 Normal [facility] URINALYSIS UA Urobilinogen 0.2 0.1 - 1.0 08/25/2012 Normal [facility] URINALYSIS UA Leuk Est Small *ABN* (08/25/2012 17:50:00) Negative 08/25/2012 ABN [facility] URINALYSIS UA Bili Negative *NA* (08/25/2012 17:50:00) Negative 08/25/2012 NA [facility] URINALYSIS UA Blood Moderate *ABN* (08/25/2012 17:50:00) Negative 08/25/2012 ABN [facility] URINALYSIS UA Ketones Negative *NA* (08/25/2012 17:50:00) Negative 08/25/2012 NA [facility] URINALYSIS UA Protein 30 mg/dL *ABN* (08/25/2012 17:50:00) Negative 08/25/2012 ABN [facility] URINALYSIS UA Glucose Negative (08/25/2012 17:50:00) Negative 08/25/2012 Normal [facility] URINALYSIS UA pH 6.0 5.0 - 8.0 08/25/2012 Normal [facility] URINALYSIS UA Turbidity Slight Cloudy (08/25/2012 17:50:00) Clear 08/25/2012 Normal [facility] URINALYSIS UA Spec Grav 1.010 <=1.030 08/25/2012 Normal [facility] URINALYSIS UA Color Yellow *NA* (08/25/2012 17:50:00) Yellow 08/25/2012 NA [facility] Pathology Reports No Data Provided for This Section Diagnostic Reports Report Value Date Source Spine cervical wo contrast CT EXAM: CT CERVICAL SPINE WITHOUT CONTRAST DATE: 10/14/2018 INDICATION: 63 years old Female patient with history of - M47.22 Other spondylosis with radiculopathy, cervical region. COMPARISON: None. TECHNIQUE: Volumetric CT acquisition of the cervical spine without contrast. Computer reformatted coronal and sagittal images are also provided. Axial images are available in both bone and soft tissue algorithm. FINDINGS: The craniocervical junction is intact. At C2-C3, no spinal canal or foraminal narrowing is present. At C3-C4, endplate spurring and disc bulge resulting in moderate spinal canal narrowing. Uncovertebral changes resulting in moderate left and mild right foraminal narrowing. At C4-C5, endplate spurring and disc bulge resulting in mild spinal canal narrowing. Uncovertebral changes resulting in mild right foraminal narrowing. Left foramen is patent. At C5-C6, endplate spurring and disc bulge resulting in mild spinal canal narrowing. Uncovertebral changes resulting in mild bilateral foraminal narrowing. At C6-C7, endplate spurring and disc bulge resulting in mild spinal canal narrowing. Uncovertebral changes resulting in mild bilateral foraminal narrowing. At C6-C7, no significant spinal canal or foraminal narrowing is present. Visualized upper lungs are clear. IMPRESSION: 1. Degenerative changes contributing to in multilevel mild to moderate spinal canal stenosis. Multilevel degenerative neural foraminal narrowing. MRI cervical spine is recommended for better evaluation of the spinal cord and spinal canal stenosis. 10/14/2018 [facility] Chest 1view DX Clinical Indication: - High blood pressure Comparison: 08/25/2012 Technique: X-ray chest frontal projection FINDINGS: There is no consolidation, pleural effusion or pneumothorax. The heart is normal in size. The mediastinum and christopher are unremarkable. The visualized bones and soft tissues are within normal limits. IMPRESSION: No chest radiographic evidence of acute cardiopulmonary disease. SL: [id number] 04/25/2018 [facility] Abdomen/Pelvis w IV contrast CT Study: Abdomen/Pelvis w IV contrast CT Clinical Indication: Diarrhea - r/o colitis Comparison: None TECHNIQUE: Multiple axial CT images of the abdomen and pelvis were acquired following the administration of intravenous contrast. Sagittal and coronal reformatted images were performed. CT Radiation Dose DLP 342 mGy-cm FINDINGS: The visualized lung bases are clear bilaterally. Punctate subcentimeter bilateral renal hypodense cysts are seen. Liver, gallbladder, pancreas, spleen, and adrenal glands are normal in appearance. No intrahepatic or extrahepatic biliary duct dilatation is seen. Patient is status post hysterectomy. Urinary bladder is well-distended. Visualized ovaries are unremarkable. Trace free pelvic fluid is seen. Scattered sigmoid diverticula are noted without inflammatory change to suggest acute diverticulitis. Contiguous circumferential wall thickening with mucosal enhancement of the transverse and descending colon is seen, most notably affecting the transverse colon with overlying pericolonic inflammatory fat stranding. Appendix is unremarkable. No intraperitoneal free air or pathologic adenopathy is noted. Mild arterial calcifications are present. Degenerative changes of the lumbar spine are present. IMPRESSION: 1. Findings compatible with colitis throughout the transverse and descending colon, most notably affecting the transverse colon. 2. Sigmoid diverticulosis without acute diverticulitis. SL: FRANCISCO 04/25/2018 [facility] Brain wo contrast CT CT SCAN OF THE BRAIN DATE: 08/25/2012 at 6:18 p.m. CLINICAL INFORMATION: Vertigo. TECHNIQUE: Routine axial images of the brain were obtained in the unenhanced mode. FINDINGS: There are postoperative changes of right frontal craniotomy with the flap replaced in anatomic position. An old left frontal trang hole craniotomy is also noted. Multiple surgical clips are noted within the right frontal region and in the suprasellar region creating spray artifact. 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 Low density encephalomalacia is noted with the left occipital pole. There are no acute hemorrhages or infarcts. The sarah/white interfaces are well defined. There are no mass lesions or extra-axial collections. IMPRESSION: 1. No acute intracranial abnormality. 2. Postoperative changes of right frontal craniotomy. 3. Right frontal porencephaly. 4. Left occipital pole encephalomalacia consistent remote insult. 08/25/2012 [facility] Chest 2 views EXAM: Chest 2 views INDICATION: Coughing COMPARISON: None TECHNIQUE: PA and lateral views of the chest. FINDINGS: There is no consolidation, pleural effusion or pneumothorax. The cardiomediastinal silhouette is normal in appearance. Dextro convex curvature of the lower thoracic spine is present. IMPRESSION: 1. Lungs are clear. 2. Dextroconvex scoliosis of the lower thoracic spine. 08/25/2012 [facility] Consultation Notes No Data Provided for This Section Discharge Summaries No Data Provided for This Section History and Physicals No Data Provided for This Section Vital Signs Vital Sign Value Date Comments Source Respitory Rate 18 04/29/2018 [facility] Systolic (mm Hg) 155 04/29/2018 [facility] Diastolic (mm Hg) 98 04/29/2018 [facility] Temperature Oral (F) 98.1 F 04/29/2018 [facility] Heart Rate 80 04/29/2018 [facility] Heart Rate 85 04/29/2018 [facility] Systolic (mm Hg) 142 04/29/2018 [facility] Diastolic (mm Hg) 89 04/29/2018 [facility] Respitory Rate 18 04/29/2018 [facility] Temperature Oral (F) 98.1 F 04/29/2018 [facility] Height 149.86 cm 04/29/2018 [facility] Temperature Oral (F) 98.0 F 04/29/2018 [facility] Heart Rate 73 04/29/2018 [facility] Respitory Rate 20 04/29/2018 [facility] Systolic (mm Hg) 146 04/29/2018 [facility] Diastolic (mm Hg) 82 04/29/2018 [facility] BMI Calculated 24.99 04/26/2018 [facility] Weight 60 04/26/2018 [facility] Height 154.94 cm 04/26/2018 [facility] Weight 64.744 04/25/2018 [facility] BMI Calculated 26.97 04/25/2018 [facility] Height 154.94 cm 04/25/2018 [facility] Height 149.86 cm 08/25/2012 [facility] Weight 59.091 08/25/2012 [facility] Encounters Location Location Details Encounter Type Encounter Number Reason For Visit Attending Provider ADM Date DC Date Status Source [facility] Emergency [id number] NOELLE OSEI METER 08/25/2012 08/25/2012 Discharged [facility] Inpatient [id number] Benji Howard Jr 04/25/2018 04/29/2018 [facility] [id number] Raman Salazarh 10/14/2018 10/15/2018 OP[facility] Pe[facility] Procedures Procedure Code Date Perfomer Comments Source ACL - Reconstruction of anterior cruciate ligament [id number] [facility] Hysterectomy [id number] [facility] [place] ACL - Reconstruction of anterior cruciate ligament [id number] [facility] Hysterectomy [id number] [facility] ACL - Reconstruction of anterior cruciate ligament [id number] [facility] Hysterectomy [id number] [facility] Assessment and Plan No Data Provided for This Section Plan of Care No Data Provided for This Section Social History Social History Date Source Social History TypeResponse Smoking Status Never smoker; Exposure to Tobacco Smoke None; Cigarette Smoking Last 365 Days No; Reg Smoking Cessation Counseling No entered on: 04/25/18 04/26/2018 [facility] [place] Social History TypeResponse Smoking Status Never smoker; Exposure to Tobacco Smoke None; Cigarette Smoking Last 365 Days No; Reg Smoking Cessation Counseling No entered on: 04/25/18 04/26/2018 [facility] Family History No Data Provided for This Section Advance Directives No Data Provided for This Section Functional Status No Data Provided for This Section
--- OUTSIDE RECORDS SUMMARY | 2018-11-24 09:26 | XMS REPORT | CCD ---
Author Author Auto Generated Organization [facility] Address Unknown Phone Unavailable Care Team Providers Care Cigar Machine Feeder Name Role Phone Cosmo Liu CP Allergies, Adverse Reactions, Alerts Substance Reaction Status NKDA Active Problem List Condition Effective Dates Status Brain tumor Resolved Hypertension Resolved RSD - Reflex sympathetic dystrophy Resolved Seizure Resolved Medications Medication Instructions Start Date End Date Status magnesium oxide 400 mg, 1 tab, Route: PO, Drug 08/25/2012 08/25/2012 Completed form: TAB, ONCE, Dosing Weight 59.091, kg, Start date: 08/25/12 19:56:00, Stop date: 08/25/12 19:56:00 Premarin Vaginal 1 appl, VAG, Daily, 42 gm, 08/25/2012 Ordered 0.625 mg/g cream Substitution Allowed with applicator lactulose 15 mL, PO, Daily, PRN, as needed 08/25/2012 Ordered for constipation, Substitution Allowed, Maintenance methocarbamol 750 mg 1,500 mg, 2 tab, PO, TID, 60 tab, 08/25/2012 Ordered oral tablet Substitution Allowed, TAB Macrobid 100 mg oral 100 mg, 1 cap, PO, BID, 20 cap, 08/25/2012 09/04/2012 Ordered capsule Substitution Allowed, CAP Anusol-HC 25 mg 25 mg, 1 supp, GA, BID, PRN, 14 08/25/2012 Ordered rectal suppository supp, hemorrhoids, Substitution Allowed, SUPP cetirizine 10 mg 10 mg, 1 cap, PO, QPM, PRN, as 08/25/2012 Ordered oral capsule needed for allergy symptoms, Substitution Allowed zolpidem 5 mg oral 5 mg, 1 tab, PO, Bedtime, PRN, as 08/25/2012 Ordered tablet needed for sleep, Substitution Allowed [place] 5/325 oral 1 tab, PO, Q8H, PRN, 30 tab, as 08/25/2012 Ordered tablet needed for pain, Substitution Allowed, Maintenance alendronate 70 mg 70 mg, 1 tab, PO, qWeek, on empty 08/25/2012 Ordered oral tablet, stomach and avoid bending, effervescent Substitution Allowed on empty stomach and avoid bending gabapentin 300 mg 300 mg, 1 cap, PO, BID, 90 cap, 08/25/2012 Ordered oral capsule Substitution Allowed doxazosin 1 mg oral 1 mg, 1 tab, PO, Daily, 30 tab, 08/25/2012 Ordered tablet Substitution Allowed, TAB simvastatin 20 mg, 1 tab, PO, Bedtime, 30 tab, 08/25/2012 Ordered Substitution Allowed Tegretol 200 mg oral 200 mg, 1 tab, PO, Daily, 120 tab, 08/25/2012 Ordered tablet Substitution Allowed, TAB potassium chloride 40 mEq, 2 tab, Route: PO, Drug 08/25/2012 08/25/2012 Completed 20 mEq oral tablet, form: ERTAB, ONCE, Dosing Weight extended release 59.091, kg, Priority: STAT, Start date: 08/25/12 19:53:00, Stop date: 08/25/12 19:53:00 Klor-Con 20 mEq, PO, Daily, Substitution 08/25/2012 Ordered Allowed amLODipine 10 mg 10 mg, 1 tab, PO, Daily, 90 tab, 08/25/2012 Ordered oral tablet Substitution Allowed, TAB hydrochlorothiazide 25 mg, 1 tab, PO, QAM, 30 tab, 08/25/2012 Ordered 25 mg oral tablet Substitution Allowed Prevacid 15 mg, PO, Daily, Substitution 08/25/2012 Ordered Allowed folic acid 1 mg oral 1 mg, 1 tab, PO, Daily, 30 tab, 08/25/2012 Ordered tablet Substitution Allowed, TAB multivitamin 1 tab, PO, Daily, Substitution 08/25/2012 Ordered Allowed, Maintenance aspirin 81 mg, PO, Daily, Substitution 08/25/2012 Ordered Allowed ibuprofen 400 mg 400 mg, 1 tab, PO, Q8H, PRN, 60 08/25/2012 Ordered oral tablet tab, Pain, Substitution Allowed calcium carbonate vitamin D3 600-400 MG 1 tab, PO, 08/25/2012 Ordered BID, Substitution Allowed Vital Signs Most recent to oldest [Reference Range]: 1 Height 149.86 cm (08/25/2012 10:36:00) Weight 59.091 kg (08/25/2012 10:36:00) Results URINALYSIS Most recent to oldest [Reference Range]: 1 UA Turbidity [Clear] Slight Cloudy (08/25/2012 17:50:00) UA Color [Yellow] Yellow *NA* (08/25/2012 17:50:00) UA pH [5.0-8.0] 6.0 (08/25/2012 17:50:00) UA Spec Grav [<=1.030] 1.010 (08/25/2012 17:50:00) UA Glucose [Negative] Negative (08/25/2012 17:50:00) UA Blood [Negative] Moderate *ABN* (08/25/2012 17:50:00) UA Ketones [Negative] Negative *NA* (08/25/2012 17:50:00) UA Protein [Negative mg/dL] 30 mg/dL *ABN* (08/25/2012 17:50:00) UA Urobilinogen [0.1-1.0 EU/dL] 0.2 EU/dL (08/25/2012 17:50:00) UA Bili [Negative] Negative *NA* (08/25/2012 17:50:00) UA Leuk Est [Negative] Small *ABN* (08/25/2012 17:50:00) UA Nitrite [Negative] Negative (08/25/2012 17:50:00) UA WBC [None Seen /HPF] 3-5 /HPF (08/25/2012 17:50:00) UA RBC [0-2 /HPF] 21-50 /HPF *ABN* (08/25/2012 17:50:00) UA Bacteria [None Seen /HPF] Occasional /HPF (08/25/2012 17:50:00) UA Sq Epi [Few /LPF] Moderate /LPF *ABN* (08/25/2012 17:50:00) UA Amorph Ayleen [None Seen /HPF] Few /HPF *ABN* (08/25/2012 17:50:00) UA Renal Epi 0-2 /LPF *ABN* (08/25/2012 17:50:00) UA Mucus [None Seen /LPF] Few /LPF (08/25/2012 17:50:00) Micro? Performed (08/25/2012 17:50:00) CHEMISTRY Most recent to oldest [Reference Range]: 1 Sodium Lvl [135-145 mEq/L] 144 mEq/L (08/25/2012 17:50:00) Potassium Lvl [3.5-5.1 mEq/L] 3.0 mEq/L 1 *CRIT* (08/25/2012 17:50:00) Chloride Lvl [95-109 mEq/L] 100 mEq/L (08/25/2012 17:50:00) CO2 [24-32 mEq/L] 34 mEq/L *HI* (08/25/2012 17:50:00) AGAP [10.0-20.0 mEq/L] 13.0 mEq/L (08/25/2012 17:50:00) Creatinine Lvl [0.5-1.4 mg/dL] 0.8 mg/dL (08/25/2012 17:50:00) eGFR 95 mL/min/1.73m2 2 *NA* (08/25/2012 17:50:00) BUN [7-22 mg/dL] 14 mg/dL (08/25/2012 17:50:00) Glucose Lvl [70-99 mg/dL] 99 mg/dL 3 (08/25/2012 17:50:00) Calcium Lvl [8.5-10.5 mg/dL] 9.1 mg/dL (08/25/2012 17:50:00) 1Result Comment: Critical Result(s) called to Bita Whitehead at08/25/2012 18:42:15 CDT _ by johnathan henry_. Read back OK. 2Result Comment: The eGFR is calculated using the [...] from the National Kid[employer] Disease Education Program ( NKDEP) which additionally recommends that when the eGFR is used in patients with extremes of body mass index for purposes of drug dosing, the eGFR should be mul tiplied by the estimated BMI. 3Interpretive Data: Adult reference range values reflect the clinical guidelines of the [place] [employer]. HEMATOLOGY Most recent to oldest [Reference Range]: 1 WBC [3.7-10.4 K/CMM] 5.4 K/CMM (08/25/2012 17:50:00) RBC [4.20-5.40 M/CMM] 3.49 M/CMM *LOW* (08/25/2012 17:50:00) Hgb [12.0-16.0 g/dL] 11.0 g/dL *LOW* (08/25/2012:50:00) Hct [36.0-48.0 %] 32.9 % *LOW* (08/25/2012:50:00) MCV [81.0-99.0 fL] 94.3 fL (08/25/2012:50:00) MCH [27.0-31.0 pg] 31.6 pg *HI* (08/25/2012:50:00) MCHC [32.0-36.0 g/dL] 33.5 g/dL (08/25/2012 17:50:00) RDW [11.5-14.5 %] 12.3 % (08/25/2012 17:50:00) Platelet [133-450 K/CMM] 284 K/CMM (08/25/2012 17:50:00) MPV [7.4-10.4 fL] 7.2 fL *LOW* (08/25/2012 17:50:00) Segs [45.0-75.0 %] 52.7 % (08/25/2012 17:50:00) Lymphocytes [20.0-40.0 %] 34.9 % (08/25/2012 17:50:00) Monocytes [2.0-12.0 %] 11.8 % (08/25/2012 17:50:00) Eosinophils [0.0-4.0 %] 0.0 % (08/25/2012 17:50:00) Basophils [0.0-1.0 %] 0.6 % (08/25/2012 17:50:00) Segs-Bands # [1.5-8.1 K/CMM] 2.9 K/CMM (08/25/2012 17:50:00) Lymphocytes # [1.0-5.5 K/CMM] 1.9 K/CMM (08/25/2012 17:50:00) Monocytes # [0.0-0.8 K/CMM] 0.6 K/CMM (08/25/2012 17:50:00) Eosinophils # [0.0-0.5 K/CMM] 0.0 K/CMM (08/25/2012 17:50:00) Basophils # [0.0-0.2 K/CMM] 0.0 K/CMM (08/25/2012 17:50:00) PT [12.0-14.7 seconds] 12.1 seconds (08/25/2012 17:50:00) INR [0.85-1.17] 0.87 4 (08/25/2012 17:50:00) 4Interpretive Data: RECOMMENDED RANGES FOR PROTIME INR: 2.0-3.0 for most medical and surgical thromboembolic states. 2.5-3.5 for artificial heart valves and recurrent embolism. INR SHOULD BE USED ONLY FOR PATIENTS ON STABLE ANTICOAGULANT THERAPY. Procedures Procedures Date Related Diagnosis ACL - Reconstruction of anterior cruciate ligament Hysterectomy
--- OUTSIDE RECORDS SUMMARY | 2018-11-24 09:26 | XMS REPORT | Summary of Care ---
Author Author [facility] Organization [facility] Address Unknown Phone Unavailable Encounter HQ [place](TIANNA) [id number] Date(s): 04/25/18 - 04/29/18 [facility] [address] [place] [address]- [phone] Encounter Diagnosis Acute (reversible) ischemia of large intestine, extent unspecified (Final) - 05/13/18 Essential (primary) hypertension (Final) - Epilepsy, unspecified, not intractable, without status epilepticus (Final) - Diverticulosis of large intestine without perforation or abscess without bleedin g (Final) - Hyperlipidemia, unspecified (Final) - Anemia, unspecified (Final) - Other hemorrhoids (Final) - Personal history of benign neoplasm of the brain (Final) - halfway (current) use of aspirin (Final) - Discharge Disposition: Home or Self Care Attending Physician: Benji Beck MD Admitting Physician: Benji Beck MD Vital Signs 1 2 3 Most recent to oldest [Reference Range]: 149.86 cm (04/29/18 6:26 AM) 154.94 cm (04/25/18 9:52 PM) 154.94 cm (04/25/18 11:55 AM) Height 60.909 kg (04/29/18 6:26 AM) Current Weight 98.1 DegF (04/29/18 11:39 AM) 98.1 DegF (04/29/18 7:11 AM) 98.0 DegF (04/29/18 4:37 AM) Temperature Oral [96.4-99.1 DegF] 155/98 mmHg *HI* (04/29/18 11:39 AM) 142/89 mmHg *HI* (04/29/18 7:11 AM) 146/82 mmHg *HI* (04/29/18 4:37 AM) Blood Pressure [90-140/60-90 mmHg] 18 BRMIN (04/29/18 11:39 AM) 18 BRMIN (04/29/18 7:11 AM) 20 BRMIN (04/29/18 4:37 AM) Respiratory Rate [14-20 BRMIN] 80 bpm (04/29/18 11:39 AM) 85 bpm (04/29/18 7:11 AM) 73 bpm (04/29/18 4:37 AM) Peripheral Pulse Rate [60-100 bpm] 60 kg (04/25/18 9:52 PM) 64.744 kg (04/25/18 11:55 AM) Weight 24.99 m2 (04/25/18 9:52 PM) 26.97 m2 (04/25/18 11:55 AM) Body Mass Index Problem List Condition Effective Dates Status Health Status Informant Brain Resolved tumor(Confirmed) Hypertension(Confirm Resolved ed) RSD - Reflex Resolved sympathetic dystrophy(Confirmed) Seizure(Confirmed) Resolved Allergies, Adverse Reactions, Alerts No Known Medication Allergies Medications alendronate 70 mg, Route: PO, Drug form: EFTAB, qWeek, Dosing Weight 60, kg, Start date: 12/05 8:00:00 INBOUND SALES REPRESENTATIVE, Duration: 30 day, Stop date: 05/24/18 9:00:00 INBOUND SALES REPRESENTATIVE Start Date: 04/26/18 Stop Date: 04/26/18 Status: Deleted amLODIPine 10 mg, 1 tab, Route: PO, Drug form: TAB, Daily, Dosing Weight 60, kg, Start date : 04/26/18 9:00:00 INBOUND SALES REPRESENTATIVE, Duration: 30 day, Stop date: 05/25/18 9:00:00 INBOUND SALES REPRESENTATIVE Notes: (Same as: Norvasc) Start Date: 04/26/18 Stop Date: 04/29/18 Status: Discontinued Anusol-HC 25 mg rectal suppository 25 mg, 1 supp, Route: CO, BID, Drug form: SUPP, PRN Hemorrhoids, Start date: 12/05 7:26:00 INBOUND SALES REPRESENTATIVE, Duration: 30 day, Stop date: 05/26/18 7:25:00 INBOUND SALES REPRESENTATIVE Notes: (Same as: Anusol-HC, Hemorrhoidal HC) Start Date: 04/26/18 Stop Date: 04/29/18 Status: Discontinued aspirin 81 mg, 1 tab, Route: PO, Drug form: ECTAB, Daily, Dosing Weight 60, kg, Start da te: 04/26/18 9:00:00 INBOUND SALES REPRESENTATIVE, Duration: 30 day, Stop date: 05/25/18 9:00:00 INBOUND SALES REPRESENTATIVE Notes: Do not crush or chew.(Same As: Ecotrin) Start Date: 04/26/18 Stop Date: 04/29/18 Status: Discontinued calcium carbonate Route: PO, BID, Dosing Weight 60, kg, Start date: 04/26/18 9:00:00 INBOUND SALES REPRESENTATIVE, Duration : 30 day, Stop date: 05/25/18 17:00:00 INBOUND SALES REPRESENTATIVE Start Date: 04/26/18 Stop Date: 04/26/18 Status: Deleted calcium-vitamin D 315 mg-200 intl units oral tablet 1 tab, Route: PO, Drug Form: TAB, BID, Start date: 04/26/18 9:00:00 INBOUND SALES REPRESENTATIVE, Duratio n: 30 day, Stop date: 05/25/18 17:00:00 INBOUND SALES REPRESENTATIVE Notes: Non-Formulary Medication(Same As: Citracal Caplets Plus D) Start Date: 04/26/18 Stop Date: 04/29/18 Status: Discontinued carvedilol 6.25 mg, 1 tab, Route: PO, Drug form: TAB, BID, Dosing Weight 60, kg, Start date : 04/26/18 9:00:00 INBOUND SALES REPRESENTATIVE, Duration: 30 day, Stop date: 05/25/18 21:00:00 INBOUND SALES REPRESENTATIVE Notes: Give with food. (Same As: Coreg) Start Date: 04/26/18 Stop Date: 04/29/18 Status: Discontinued carvedilol 6.25 mg oral tablet 6.25 mg=1 tab, PO, BID, # 180 tab, 0 Refill(s) Start Date: 04/25/18 Status: Ordered cetirizine 10 mg, 1 tab, Route: PO, Drug form: TAB, QPM, Dosing Weight 60, kg, PRN as neede d for allergy symptoms, Start date: 04/26/18 7:26:00 INBOUND SALES REPRESENTATIVE, Duration: 30 day, Stop date: 05/26/18 7:25:00 INBOUND SALES REPRESENTATIVE Notes: (Same As: Zyrtec) Start Date: 04/26/18 Stop Date: 04/29/18 Status: Discontinued Cipro 400 mg, 200 mL, Route: IVPB, Drug form: INJ, ONCE, Dosing Weight 64.744, kg, Tamy ority: STAT, Start date: 04/25/18 18:18:00 INBOUND SALES REPRESENTATIVE, Stop date: 04/25/18 18:18:00 INBOUND SALES REPRESENTATIVE , ABX Indication: Intra-abdominal Infection Notes: Do not refrigerate Start Date: 04/25/18 Stop Date: 04/25/18 Status: Completed Cipro 500 mg, 1 tab, Route: PO, Drug form: TAB, [id number], Dosing Weight 60, kg, Start d ate: 04/29/18 13:00:00 INBOUND SALES REPRESENTATIVE, Duration: 7 day, Stop date: 05/06/18 1:00:00 INBOUND SALES REPRESENTATIVE, AB X Indication: Intra-abdominal Infection Notes: May interfere w/enteral feedings - Take 1 hr before or 2 hrs after anta cids, dairy pdt & minerals. On empty stomach. Start Date: 04/29/18 Stop Date: 04/29/18 Status: Discontinued Citrate of Magnesia 300 ml, Route: PO, Drug Form: LIQ, Dosing Weight 60, kg, ONCE, Start date: 04/26 12:55:00 INBOUND SALES REPRESENTATIVE, Stop date: 04/26/18 12:55:00 INBOUND SALES REPRESENTATIVE Notes: (Same as: Citrate of Magnesia)Concentration: 1.745 gm / 30 mL Start Date: 04/26/18 Stop Date: 04/26/18 Status: Completed Dilaudid 1 mg, 0.5 mL, Route: IVP, Drug form: INJ, Q4H, Dosing Weight 64.744, kg, PRN Vonnie n Score 7-10, Start date: 04/25/18 19:26:00 INBOUND SALES REPRESENTATIVE, Duration: 30 day, Stop date: 19:25:00 INBOUND SALES REPRESENTATIVE Notes: Same as Dilaudid Start Date: 04/25/18 Stop Date: 04/29/18 Status: Discontinued doxazosin 1 mg, 0.5 tab, Route: PO, Drug form: TAB, Daily, Dosing Weight 60, kg, Start jeremiah e: 04/26/18 9:00:00 INBOUND SALES REPRESENTATIVE, Duration: 30 day, Stop date: 05/25/18 9:00:00 INBOUND SALES REPRESENTATIVE Notes: (Same as: Alec) Start Date: 04/26/18 Stop Date: 04/29/18 Status: Discontinued Dulcolax Laxative 20 mg, 4 tab, Route: PO, Drug form: ECTAB, ONCE, Dosing Weight 60, kg, Start jeremiah e: 04/26/18 12:55:00 INBOUND SALES REPRESENTATIVE, Stop date: 04/26/18 12:55:00 INBOUND SALES REPRESENTATIVE Notes: (Same As: Dulcolax, Correctol) (Do Not Crush) "Do Not Crush" Start Date: 04/26/18 Stop Date: 04/26/18 Status: Completed Flagyl 500 mg, 100 mL, Route: IVPB, Drug form: INJ, ABXQ8H, Dosing Weight 64.744, kg, S tart date: 04/26/18 2:00:00 INBOUND SALES REPRESENTATIVE, Duration: 14 day, Stop date: 05/09/18 18:00:00 INBOUND SALES REPRESENTATIVE, ABX Indication: Intra-abdominal Infection Notes: (Same as: Flagyl) Avoid alcohol. Start Date: 04/26/18 Stop Date: 04/29/18 Status: Discontinued Flagyl 500 mg, 1 tab, Route: PO, Drug form: TAB, ABXQ8H, Dosing Weight 60, kg, Start da te: 04/29/18 13:00:00 INBOUND SALES REPRESENTATIVE, Duration: 7 day, Stop date: 05/06/18 5:00:00 INBOUND SALES REPRESENTATIVE, ABX Indication: Intra-abdominal Infection Notes: (Same as: Flagyl) Take with food/ avoid alcohol Start Date: 04/29/18 Stop Date: 04/29/18 Status: Discontinued Flagyl 500 mg, 100 mL, Route: IVPB, Drug form: INJ, ONCE, Dosing Weight 64.744, kg, Tamy ority: STAT, Start date: 04/25/18 18:18:00 INBOUND SALES REPRESENTATIVE, Stop date: 04/25/18 18:18:00 INBOUND SALES REPRESENTATIVE , ABX Indication: Intra-abdominal Infection Notes: (Same as: Flagyl) Avoid alcohol. Start Date: 04/25/18 Stop Date: 04/25/18 Status: Completed folic acid 1 mg, 1 tab, Route: PO, Drug form: TAB, Daily, Dosing Weight 60, kg, Start date: 04/26/18 9:00:00 INBOUND SALES REPRESENTATIVE, Duration: 30 day, Stop date: 05/25/18 9:00:00 INBOUND SALES REPRESENTATIVE Notes: (Same as: Folvite) Start Date: 04/26/18 Stop Date: 04/29/18 Status: Discontinued Fosamax 10 mg, 1 tab, Route: PO, Drug form: TAB, [id number], Start date: 05/02/18 6:30:00 CS T, Duration: 30 day, Stop date: 05/31/18 6:30:00 INBOUND SALES REPRESENTATIVE Notes: Non-Formulary DrugReserved for use in Post-Acute termination clerk care settings ONLYGive 30 min before breakfast w/6oz water. Sit upright for 30 min after dose. "Do Not Crush" (Same as: Fosamax) Start Date: 05/02/18 Stop Date: 04/29/18 Status: Canceled gabapentin 300 mg oral capsule 300 mg, 1 cap, Route: PO, Drug form: CAP, BID, Dosing Weight 60, kg, Start date: 04/26/18 9:00:00 INBOUND SALES REPRESENTATIVE, Duration: 30 day, Stop date: 05/25/18 21:00:00 INBOUND SALES REPRESENTATIVE Notes: (Same as: Neurontin) Start Date: 04/26/18 Stop Date: 04/29/18 Status: Discontinued GoLYTELY 4,000 ml, Route: PO, Drug Form: PDR/REC, Dosing Weight 60, kg, ONCE, Start date: 04/26/18 12:55:00 INBOUND SALES REPRESENTATIVE, Stop date: 04/26/18 12:55:00 INBOUND SALES REPRESENTATIVE Notes: (polyethylene glycol electrolyte solution 4 Liter bottle) (Same as: Gol ytely, Colyte) Start Date: 04/26/18 Stop Date: 04/26/18 Status: Completed hydrochlorothiazide 25 mg oral tablet 25 mg, 1 tab, Route: PO, Drug form: TAB, QAM, Dosing Weight 60, kg, Start date: 04/26/18 9:00:00 INBOUND SALES REPRESENTATIVE, Duration: 30 day, Stop date: 05/25/18 9:00:00 INBOUND SALES REPRESENTATIVE Notes: (Same as: Hydrodiuril) With food. Start Date: 04/26/18 Stop Date: 04/29/18 Status: Discontinued ibuprofen 400 mg oral tablet 400 mg, 1 tab, Route: PO, Drug form: TAB, Q8H, Dosing Weight 60, kg, PRN Pain Sc ore 1-3, Start date: 04/26/18 7:26:00 INBOUND SALES REPRESENTATIVE, Duration: 30 day, Stop date: 05/26/18 7:25:00 INBOUND SALES REPRESENTATIVE Notes: (Same as: Motrin)"Do Not Crush" Give with food. Start Date: 04/26/18 Stop Date: 04/29/18 Status: Discontinued Klor-Con 10 mEq, 1 tab, Route: PO, Drug form: ERTAB, Daily, Dosing Weight 60, kg, Start d ate: 04/26/18 9:00:00 INBOUND SALES REPRESENTATIVE, Duration: 30 day, Stop date: 05/25/18 9:00:00 INBOUND SALES REPRESENTATIVE Notes: (Same as: K-Dur 10)"Do Not Crush" With food and full glass of water Start Date: 04/26/18 Stop Date: 04/29/18 Status: Discontinued lactulose 10 g/15 mL oral syrup 20 gm, 30 ml, Route: PO, Drug form: SYRP, Daily, Dosing Weight 60, kg, PRN Const ipation, Start date: 04/26/18 7:26:00 INBOUND SALES REPRESENTATIVE, Duration: 30 day, Stop date: 05/26/18 7:25:00 INBOUND SALES REPRESENTATIVE Notes: (Same as:Chronulac) Start Date: 04/26/18 Stop Date: 04/29/18 Status: Discontinued methocarbamol 1,500 mg, 3 tab, Route: PO, Drug form: TAB, TID, Dosing Weight 60, kg, Start jeremiah e: 04/26/18 9:00:00 INBOUND SALES REPRESENTATIVE, Duration: 30 day, Stop date: 05/25/18 17:00:00 INBOUND SALES REPRESENTATIVE Notes: (Same as:Robaxin) Start Date: 04/26/18 Stop Date: 04/29/18 Status: Discontinued metroNIDAZOLE 500 mg oral tablet 500 mg=1 tab, PO, ABXQ8H, # 30 tab, 0 Refill(s), Pharmacy: [facility] [id number] Start Date: 04/29/18 Stop Date: 05/09/18 Status: Completed metroNIDAZOLE 500 mg oral tablet 500 mg=1 tab, PO, ABXQ8H, # 20 tab, 0 Refill(s), Pharmacy: [facility] [id number] Start Date: 04/29/18 Stop Date: 05/09/18 Status: Completed multivitamin 1 tab, Route: PO, Drug Form: TAB, Dosing Weight 60, kg, Daily, Start date: 04/26 9:00:00 INBOUND SALES REPRESENTATIVE, Duration: 30 day, Stop date: 05/25/18 9:00:00 INBOUND SALES REPRESENTATIVE Notes: (Same as:One Tab Daily, Tab-A-Soraida + Beta Carotene) Give with food. Start Date: 04/26/18 Stop Date: 04/29/18 Status: Discontinued Jansen 5/325 oral tablet 1 tab, Route: PO, Drug Form: TAB, Dosing Weight 60, kg, Q8H, PRN Other -See Comm ent, Start date: 04/26/18 7:26:00 INBOUND SALES REPRESENTATIVE, Duration: 30 day, Stop date: 05/26/18 7:2 5:00 INBOUND SALES REPRESENTATIVE Notes: (Same as: Jansen 325/5) Do not exceed 4gm/day of acetaminophen. Start Date: 04/26/18 Stop Date: 04/29/18 Status: Discontinued Omnipaque 300 100 btl, Route: IV, Dosing Weight 64.744, kg, ONCE, Start date: 04/25/18 17:41:0 0 INBOUND SALES REPRESENTATIVE, Stop date: 04/25/18 17:41:00 INBOUND SALES REPRESENTATIVE Start Date: 04/25/18 Stop Date: 04/25/18 Status: Completed pantoprazole 40 mg, Route: IVP, ONCE, Dosing Weight 64.744, kg, Patient is NPO, Priority: STA T, Start date: 04/25/18 19:12:00 INBOUND SALES REPRESENTATIVE, Stop date: 04/25/18 19:12:00 INBOUND SALES REPRESENTATIVE Start Date: 04/25/18 Stop Date: 04/25/18 Status: Completed potassium chloride 10 mEq, 100 mL, Route: IVPB, Drug form: INJ, Q1H, Dosing Weight 60, kg, Total Do se=40 meq, Start date: 04/27/18 6:00:00 INBOUND SALES REPRESENTATIVE, Duration: 4 doses or times, Stop da te: 04/27/18 9:00:00 INBOUND SALES REPRESENTATIVE, Peripheral Line Notes: Infuse at a rate of 10 mEq/hr.(Same as: KCL) Start Date: 04/27/18 Stop Date: 04/27/18 Status: Completed potassium chloride 10 mEq, 100 mL, Route: IVPB, Drug form: INJ, Q1H, Dosing Weight 60, kg, Total Do se=20 meq, Start date: 04/26/18 0:00:00 INBOUND SALES REPRESENTATIVE, Duration: 2 doses or times, Stop da te: 04/26/18 1:00:00 INBOUND SALES REPRESENTATIVE, Peripheral Line Notes: Infuse at a rate of 10 mEq/hr.(Same as: KCL) Start Date: 04/26/18 Stop Date: 04/26/18 Status: Completed Premarin Vaginal 0.625 mg/g cream with applicator 1 appl, Route: VAG, Daily, Drug form: CRM/A, Start date: 04/26/18 9:00:00 INBOUND SALES REPRESENTATIVE, D uration: 30 day, Stop date: 05/25/18 9:00:00 INBOUND SALES REPRESENTATIVE Start Date: 04/26/18 Stop Date: 04/26/18 Status: Deleted Prevacid 15 mg, Route: PO, Daily, Dosing Weight 60, kg, Start date: 04/26/18 9:00:00 INBOUND SALES REPRESENTATIVE, Duration: 30 day, Stop date: 05/25/18 9:00:00 INBOUND SALES REPRESENTATIVE Start Date: 04/26/18 Stop Date: 04/26/18 Status: Deleted Protonix 40 mg, 1 tab, Route: PO, Drug form: ECTAB, Q24H, Start date: 04/26/18 8:00:00 CS T, Duration: 30 day, Stop date: 05/25/18 8:00:00 INBOUND SALES REPRESENTATIVE Notes: Tablet should not be chewed or crushed.(Same as: Protonix) Start Date: 04/26/18 Stop Date: 04/29/18 Status: Discontinued Rocephin + sterile water 10 mL 1 gm, Route: IV, [id number], Dosing Weight 64.744, kg, Start date: 04/25/18 20:00:0 0 INBOUND SALES REPRESENTATIVE, Duration: 14 day, Stop date: 05/08/18 20:00:00 INBOUND SALES REPRESENTATIVE, ABX Indication: Intra -abdominal Infection Notes: (Same As: Rocephin).Use with 100 mL NS and infuse over 30 min MEDICA TION WASTE Product Size: 1000 mgProduct Wasted: ___ mg Start Date: 04/25/18 Stop Date: 04/29/18 Status: Discontinued simvastatin 20 mg, 1 tab, Route: PO, Drug form: TAB, Bedtime, Dosing Weight 60, kg, Start da te: 04/26/18 21:00:00 INBOUND SALES REPRESENTATIVE, Duration: 30 day, Stop date: 05/25/18 21:00:00 INBOUND SALES REPRESENTATIVE Notes: (Same as: Zocor) Start Date: 04/26/18 Stop Date: 04/29/18 Status: Discontinued Tegretol 200 mg, 1 tab, Route: PO, Drug form: TAB, BID, Dosing Weight 60, kg, Start date: 04/26/18 9:00:00 INBOUND SALES REPRESENTATIVE, Duration: 30 day, Stop date: 05/25/18 17:00:00 INBOUND SALES REPRESENTATIVE Notes: With food. (Same As: Tegretol) Start Date: 04/26/18 Stop Date: 04/29/18 Status: Discontinued Zofran 4 mg, 2 mL, Route: IVP, Drug form: INJ, Q8H, Dosing Weight 60, kg, PRN Nausea, S tart date: 04/26/18 12:55:00 INBOUND SALES REPRESENTATIVE, Duration: 30 day, Stop date: 05/26/18 12:54:00 INBOUND SALES REPRESENTATIVE Notes: (Same as: Zofran) MEDICATION WASTE Product Size: 4 mgProduct Was markos: ___ mg Start Date: 04/26/18 Stop Date: 04/29/18 Status: Discontinued zolpidem 5 mg, 1 tab, Route: PO, Drug form: TAB, Bedtime, Dosing Weight 60, kg, PRN Sleep , Start date: 04/26/18 7:26:00 INBOUND SALES REPRESENTATIVE, Duration: 30 day, Stop date: 05/26/18 7:25:0 0 INBOUND SALES REPRESENTATIVE Notes: (Same As: Ambien) Start Date: 04/26/18 Stop Date: 04/29/18 Status: Discontinued Results 1 2 3 Most recent to oldest [Reference Range]: <0.05 ng/mL (04/25/18 10:46 PM) Procalcitonin Lvl [0.00-0.10 ng/mL] 1.8 K/CMM (04/29/18 11:10 AM) 1.3 K/CMM *LOW* (04/29/18 6:55 AM) 1.6 K/CMM (04/29/18 12:19 AM) Neutrophils # [1.5-8.1 K/CMM] 1.4 K/CMM (04/29/18 11:10 AM) 1.7 K/CMM (04/29/18 6:55 AM) 2.0 K/CMM (04/29/18 12:19 AM) Lymphocytes # [1.0-5.5 K/CMM] 0.6 K/CMM (04/29/18 11:10 AM) 0.4 K/CMM (04/29/18 6:55 AM) 0.4 K/CMM (04/29/18 12:19 AM) Monocytes # [0.0-0.8 K/CMM] 79 mL/min/1.73m2 1 *NA* (04/28/18 3:51 AM) 109 mL/min/1.73m2 2 *NA* (04/27/18 3:56 AM) 78 mL/min/1.73m2 3 *NA* (04/25/18 1:39 PM) eGFR 1.1 (04/28/18 3:51 AM) 1.1 (04/27/18 3:56 AM) 1.2 (04/25/18 1:39 PM) A/G Ratio [0.7-1.6] 3.4 ng/mL (04/25/18 10:46 PM) AFP TM [0.0-11.0 ng/mL] 3.5 g/dL (04/28/18 3:51 AM) 3.9 g/dL (04/27/18 3:56 AM) 4.4 g/dL (04/25/18 1:39 PM) Albumin Lvl [3.5-5.0 g/dL] 116 unit/L (04/28/18 3:51 AM) 139 unit/L *HI* (04/27/18 3:56 AM) 151 unit/L *HI* (04/25/18 1:39 PM) Alk Phos [39-136 unit/L] 22 unit/L (04/28/18 3:51 AM) 23 unit/L (04/27/18 3:56 AM) 26 unit/L (04/25/18 1:39 PM) ALT [0-65 unit/L] 9.6 mEq/L *LOW* (04/28/18 3:51 AM) 11.9 mEq/L (04/27/18 3:56 AM) 13.4 mEq/L (04/25/18 1:39 PM) AGAP [10.0-20.0 mEq/L] 13 unit/L (04/28/18 3:51 AM) 12 unit/L (04/27/18 3:56 AM) 17 unit/L (04/25/18 1:39 PM) AST [0-37 unit/L] 16 (04/28/18 3:51 AM) 7 (04/27/18 3:56 AM) 7 (04/25/18 1:39 PM) B/C Ratio [6-25] 1.0 % (04/29/18 11:10 AM) 0.8 % (04/29/18 6:55 AM) 0.7 % (04/29/18 12:19 AM) Basophils [0.0-1.0 %] 14 mg/dL (04/28/18 3:51 AM) 5 mg/dL *LOW* (04/27/18 3:56 AM) 6 mg/dL *LOW* (04/25/18 1:39 PM) BUN [7-22 mg/dL] 8.9 mg/dL (04/28/18 3:51 AM) 9.0 mg/dL (04/27/18 3:56 AM) 9.6 mg/dL (04/25/18 1:39 PM) Calcium Lvl [8.5-10.5 mg/dL] 10.6 unit/mL (04/25/18 10:46 PM) CA 19-9 [0.0-35.0 unit/mL] 3.0 ng/mL (04/25/18 10:46 PM) CEA [0.0-3.0 ng/mL] 102 mEq/L (04/28/18 3:51 AM) 94 mEq/L *LOW* (04/27/18 3:56 AM) 88 mEq/L *LOW* (04/25/18 1:39 PM) Chloride Lvl [95-109 mEq/L] 31 mEq/L (04/28/18 3:51 AM) 32 mEq/L (04/27/18 3:56 AM) 32 mEq/L (04/25/18 1:39 PM) CO2 [24-32 mEq/L] 0.90 mg/dL (04/28/18 3:51 AM) 0.67 mg/dL (04/27/18 3:56 AM) 0.91 mg/dL (04/25/18 1:39 PM) Creatinine Lvl [0.50-1.40 mg/dL] 3.1 g/dL (04/28/18 3:51 AM) 3.7 g/dL (04/27/18 3:56 AM) 3.8 g/dL (04/25/18 1:39 PM) Globulin [2.7-4.2 g/dL] 86 mg/dL (04/28/18 3:51 AM) 102 mg/dL *HI* (04/27/18 3:56 AM) 96 mg/dL (04/25/18 1:39 PM) Glucose Lvl [70-99 mg/dL] 35.3 % *LOW* (04/29/18 11:10 AM) 32.5 % *LOW* (04/29/18 6:55 AM) 32.5 % *LOW* (04/29/18 12:19 AM) Hct [36.0-48.0 %] 11.9 g/dL *LOW* (04/29/18 11:10 AM) 11.1 g/dL *LOW* (04/29/18 6:55 AM) 11.1 g/dL *LOW* (04/29/18 12:19 AM) Hgb [12.0-16.0 g/dL] 1.09 (04/27/18 3:56 AM) 1.04 (04/25/18 10:46 PM) 0.92 (04/25/18 1:39 PM) INR [0.85-1.17] 3.6 mEq/L (04/28/18 3:51 AM) 2.9 mEq/L 4 *CRIT* (04/27/18 3:56 AM) 3.4 mEq/L *LOW* (04/25/18 1:39 PM) Potassium Lvl [3.5-5.1 mEq/L] 36.5 % (04/29/18 11:10 AM) 49.1 % *HI* (04/29/18 6:55 AM) 48.8 % *HI* (04/29/18 12:19 AM) Lymphocytes [20.0-40.0 %] 32.0 pg *HI* (04/29/18 11:10 AM) 32.2 pg *HI* (04/29/18 6:55 AM) 32.5 pg *HI* (04/29/18 12:19 AM) MCH [27.0-31.0 pg] 33.9 g/dL (04/29/18 11:10 AM) 34.3 g/dL (04/29/18 6:55 AM) 34.1 g/dL (04/29/18 12:19 AM) MCHC [32.0-36.0 g/dL] 94.6 fL (04/29/18 11:10 AM) 94.0 fL (04/29/18 6:55 AM) 95.3 fL (04/29/18 12:19 AM) MCV [80.0-98.0 fL] 15.3 % *HI* (04/29/18 11:10 AM) 12.0 % (04/29/18 6:55 AM) 10.0 % (04/29/18 12:19 AM) Monocytes [2.0-12.0 %] 6.4 fL *LOW* (04/29/18 11:10 AM) 6.6 fL *LOW* (04/29/18 6:55 AM) 6.5 fL *LOW* (04/29/18 12:19 AM) MPV [7.4-10.4 fL] 139 mEq/L (04/28/18 3:51 AM) 135 mEq/L (04/27/18 3:56 AM) 130 mEq/L *LOW* (04/25/18 1:39 PM) Sodium Lvl [135-145 mEq/L] 354 K/CMM (04/29/18 11:10 AM) 336 K/CMM (04/29/18 6:55 AM) 319 K/CMM (04/29/18 12:19 AM) Platelet [133-450 K/CMM] 47.2 % (04/29/18 11:10 AM) 38.1 % *LOW* (04/29/18 6:55 AM) 40.5 % *LOW* (04/29/18 12:19 AM) Segs [45.0-75.0 %] 23.4 mg/dL (04/25/18 10:46 PM) Prealbumin [18.0-45.0 mg/dL] 6.6 g/dL (04/28/18 3:51 AM) 7.6 g/dL (04/27/18 3:56 AM) 8.2 g/dL (04/25/18 1:39 PM) Total Protein [6.4-8.4 g/dL] 13.9 seconds (04/27/18 3:56 AM) 13.4 seconds (04/25/18 10:46 PM) 12.2 seconds (04/25/18 1:39 PM) PT [12.0-14.7 seconds] 33.7 seconds (04/27/18 3:56 AM) 29.4 seconds (04/25/18 10:46 PM) PTT [22.9-35.8 seconds] 3.73 M/CMM *LOW* (04/29/18 11:10 AM) 3.46 M/CMM *LOW* (04/29/18 6:55 AM) 3.41 M/CMM *LOW* (04/29/18 12:19 AM) RBC [4.20-5.40 M/CMM] 12.7 % (04/29/18 11:10 AM) 13.1 % (04/29/18 6:55 AM) 12.7 % (04/29/18 12:19 AM) RDW [11.5-14.5 %] 20 mm/hr (04/25/18 10:46 PM) Sed Rate [0-20 mm/hr] 0.2 mg/dL (04/28/18 3:51 AM) 0.3 mg/dL (04/27/18 3:56 AM) 0.3 mg/dL (04/25/18 1:39 PM) Bili Total [0.2-1.3 mg/dL] 3.8 K/CMM (04/29/18 11:10 AM) 3.4 K/CMM *LOW* (04/29/18 6:55 AM) 4.0 K/CMM (04/29/18 12:19 AM) WBC [3.7-10.4 K/CMM] 1Result Comment: The eGFR is calculated using the [...] be mul tiplied by the estimated BMI. 2Result Comment: The eGFR is calculated using [...] be mul tiplied by the estimated BMI. 3Result Comment: The eGFR is calculated using the [...] be mul tiplied by the estimated BMI. 4Result Comment: Critical Result(s) called to marlen at 04/27/2018 05:25 by . Read back OK. Microbiology Reports TEST: Culture: Stool STATUS: Auth (Verified) BODY SITE: SOURCE: Stool COLLECTED DATE/TIME: 04/26/18 5:06 PM FINAL REPORT No Gram Negative Enteric Gill Isolated Gram Positive Gill Only Isolated No Salmonella, Shigella, Or Campylobacter Isolated Immunizations No data available for this section Procedures Procedure Date Related Diagnosis Body Site Status ACL - Reconstruction of anterior cruciate Completed ligament Hysterectomy Completed Social History Social History Type Response Smoking Status Never smoker; Exposure to Tobacco Smoke None; Cigarette Smoking Last 365 Days No; Reg Smoking Cessation Counseling No entered on: 04/25/18 Assessment and Plan No data available for this section
--- OUTSIDE RECORDS SUMMARY | 2018-11-24 09:26 | XMS REPORT ---
Author Author [facility] Address Unknown Phone Unavailable Care Team Providers [facility] Supervisor Name Role Phone APOLINAR CARTER Unavailable Unavailable Problems This patient has no known problems. Allergies, Adverse Reactions, Alerts This patient has no known allergies or adverse reactions. Medications This patient has no known medications. Results Test Description Test Time Test Comments Text Results Atomic Results Result Comments BONE DXA DUAL ENERGY 2017-10-14 12:15:00 [place] [address] Patient Name: LEAH BROWN MR #: [id number] : 1955 Age/Sex: 62/F Req #: [id number] Adm Physician: Ordered by: APOLINAR CARTER MD Report #: [id number] Location: DX Room/Bed: Procedure: [id number] DX/BONE DXA DUAL ENERGY Exam Date: Exam Time: REPORT STATUS: Signed EXAM: DXA BONE DENSITY INDICATIONS: Osteoporosis COMPARISON: None. FINDINGS: Proximal left femur total bone mineral density (BMD) (g/cm2): 0.893 Femur T-score (standard deviation relative to young adult mean BMD): -0.9 Femur Z-score (standard deviation relative to age-matched control group): 0.0 Proximal left femur neck bone mineral density (BMD) (g/cm2): 0.768 Femur T-score (standard deviation relative to young adult mean BMD): -1.3 Femur Z-score (standard deviation relative to age-matched control group): -0.1 Lumbar bone mineral density (BMD) (g/cm2): 1.006 Lumbar T-score (standard deviation relative to young adult mean BMD): -1.3 Lumbar Z-score (standard deviation relative to age-matched control group): 0.4 Change since prior exam (%): Femur: Not applicable. Spine: Not applicable. Change since oldest prior exam (%): Femur: Not applicable. Spine: Not applicable. CONCLUSION: 1. Bone mineral density in the left femur is classified as osteopenia. Fracture risk is increased. 2. Bone mineral density in the spine is classified as osteopenia. Fracture risk is increased. World Health Organization Classification: *The Z-score is provided for informational purposes. The T-score is preferable for clinical decisions. When comparing exams, a change of >4% is considered statistically significant. SUGGESTED RECOMMENDATIONS: Normal T Osteopenia: Consideration should be given to use of calcium supplementation, daily multiple vitamins and adequate exercise, as preventive measures against osteoporosis, if clinically indicated. Osteoporosis T Severe Osteoporosis: In addition to the above, consideration should be given to medical therapy against osteoporosis, if clinically indicated. Toby Franco M.D. Dictated by: Toby Franco M.D. on 10/14/2017 at 12:15 Electronically approved by: Toby Franco M.D. on 10/14/2017 at 12:15 Dictated By: TOBY FRANCO MD 1215 Transcribed By: SUDHIR on 10/14/17 1215 COPY TO: APOLINAR CARTER MD SHOULDER LEFT COMPLETE 2017-10-12 11:15:00 [place] [address] Patient Name: LEAH BROWN MR #: [id number] : 1955 Age/Sex: 62/F Req #: [id number] Adm Physician: Ordered by: APOLINAR CARTER MD Report #: [id number] Location: [facility] Room/Bed: Procedure: [id number] DX/SHOULDER LEFT COMPLETE Exam Date: 10/12/17 Exam Time: 1050 REPORT STATUS: Signed PROCEDURE: X-RAY LEFT SHOULDER, COMPLETE COMPARISON: None. INDICATIONS: ARTHRITIS, SHOULDER PAIN FINDINGS: No acute, displaced fracture or dislocation. The humeral head projects appropriately adjacent to the glenoid. Irregularity along the greater humeral tuberosity likely reflects rotator cuff tendinosis. Mild narrowing and osteophytosis of the glenohumeral joint, as well as the acromioclavicular joint. Partially visualized left hemithorax is well aerated. CONCLUSION: Mild acromioclavicular and glenohumeral degenerative joint disease with suspected rotator cuff tendinosis. MRI of the left shoulder without contrast may be of benefit for further evaluation if clinically warranted. Dictated by: Ashlyn Lyons M.D. on 10/12/2017 at 11:15 Electronically approved by: Ashlyn Lyons M.D. on 10/12/2017 at 11:15 Dictated By: ASHLYN LYONS MD 1115 Transcribed By: SUDHIR on 10/12/17 1115 COPY TO: APOLINAR CARTER MD MAMMOGRAPHY DIGITAL SCR BILAT 2017-10-12 11:01:00 [place] [address] Patient Name: LEAH BROWN MR #: [id number] : 1955 Age/Sex: 62/F Req #: [id number] [facility] Physician: Ordered by: APOLINAR CARTER MD Report #: [id number] Location: [facility] Room/Bed: Procedure: [id number] MG/MAMMOGRAPHY DIGITAL SCR BILAT Exam Date: 10/12/17 Exam Time: 1005 REPORT STATUS: Signed #[id number] - [id number] #BILATERAL DIGITAL SCREENING MAMMOGRAM WITH CAD: 10/12/2017 CLINICAL: Routine screening. No prior exams were available for comparison. Current study contains 4 films. The tissue of both breasts is predominantly fatty. Current study was also evaluated with a Computer Aided Detection (CAD) system. There are benign appearing nodules in both breasts. There also are benign calcifications in the left breast. No significant masses, calcifications, or other findings are seen in either breast. IMPRESSION: BENIGN There is no mammographic evidence of malignancy. A 1 year screening mammogram is recommended. The patient will be notified by letter of the results. Rene Mckeon Jr., D.O. cw/:10/21/2017 09:34:01 Knobber: Blanche HERNANDES(Arnoldo)(Bernard), [facility] letter sent: Normal Exam Mammogram BI-RADS: 2 Benign Dictated By: RENE MCKEON DO 3 Transcribed By: JEAN on 10/21/17933 COPY TO: APOLINAR CARTER MD
--- OUTSIDE RECORDS SUMMARY | 2018-11-24 09:26 | XMS REPORT | Summary of Care ---
Author Author [facility] Organization [facility] Address Unknown Phone Unavailable Encounter HQ Celestinor_mike(FIN) [id number] Date(s): 10/14/18 - 10/14/18 [facility] [address] [place] [phone] Discharge Disposition: Home or Self Care Attending Physician: Raman Altamirano MD Referring Physician: Raman Altamirano MD Vital Signs No data available for this section Problem List Condition Effective Dates Status Health Status Informant Brain Resolved tumor(Confirmed) Hypertension(Confirm Resolved ed) RSD - Reflex Resolved sympathetic dystrophy(Confirmed) Seizure(Confirmed) Resolved Allergies, Adverse Reactions, Alerts No Known Medication Allergies Medications No data available for this section Results No data available for this section Immunizations No data available for this section [...]
[2018-11-24 12:38] VITALS: BP 117/71
== END | disposition home or self-care (01) ==
LOC: OR 09:18
PROVIDERS: ATTEND Internal Medicine
DX: D12.2 Benign neoplasm of ascending colon (principal); K51.50 Left sided colitis without complications; R19.7 Diarrhea, unspecified; R14.0 Abdominal distension (gaseous); R10.9 Unspecified abdominal pain; R56.9 Unspecified convulsions; I10 Essential (primary) hypertension; K62.89 Other specified diseases of anus and rectum
CPT/HCPCS: 45385; 93005; J2250; J2704; J3010; 45380